=== PATIENT | female | born 1980 | race African-American/Black ===

== ENCOUNTER 2016-09-10 10:38 | Emergency (ER) | payer MEDICAID ==
[2016-09-10] MEDS ORDERED: ONDANSETRON 4 MG TAB.RAPDIS PO ONE (11:22)
[2016-09-10] MEDS ORDERED: ONDANSETRON HCL INJ/PF 4 MG/2 ML SDV IV ONE ×3 (11:23→18:55)
[2016-09-10] MEDS ORDERED: NORMAL SALINE 1000 ML 1,000 ML IV ONE (11:23)
[2016-09-10] MEDS ORDERED: MORPHINE SULFATE 10 MG/ML INJ IV ONE ×2 (11:24→14:17)
--- NOTE | 2016-09-10 11:26 | ER Document Report ---
ED Medical Screen (RME) - General Chief Complaint: Nausea/Vomiting/Diarrhea Stated Complaint: ABDOMINAL PAIN,NAUSEA,VOMITING,DIARRHEA Time Seen by Provider: 09/10/16 11:22 Notes: Patient is here complaining of severe stomach cramps and think she is having a flare of her Crohn's disease. Patient says that she has had diarrhea for the past 3 weeks. She has been nauseated and had vomiting for the past 4 days. She has abdominal pain, primarily to the right of the midline but it goes all over the abdomen. Has not seen any blood in her vomitus or stools. Has not had any fever. Patient sees a see supervisor in [place]. TRAVEL OUTSIDE OF THE [place]S. IN LAST 30 DAYS: No - Related Data Allergies/Adverse Reactions: latex [Latex] Allergy (Verified 09/10/16 10:44) Past Medical History Renal/ Medical History: Denies: Hx Peritoneal Dialysis GI Medical History: Reports: Hx Crohn's Disease, Hx Gastroesophageal Reflux Disease Psychiatric Medical History: Denies: Hx Depression Past Surgical History: Reports: Hx Oral Surgery - [place] teeth, Other - EGD and colonoscopy - Immunizations Hx Diphtheria, Pertussis, Tetanus Vaccination: Yes - 2010 Physical Exam - Vital signs Vitals: Temp Pulse Resp BP Pulse Ox 98.2 F 100 22 H 157/101 H 100 09/10/16 10:44 09/10/16 10:44 09/10/16 10:44 09/10/16 10:44 09/10/16 10:44 Course - Vital Signs Vital signs: Temp Pulse Resp BP Pulse Ox 98.2 F 100 22 H 157/101 H 100 09/10/16 10:44 09/10/16 10:44 09/10/16 10:44 09/10/16 10:44 09/10/16 10:44
[2016-09-10 12:15] LABS: ABSOLUTE BASOPHILS # (AUTO) 0.1 10^3/uL (0.0-0.2); ABSOLUTE EOSINOPHILS # (AUTO) 0.1 10^3/uL (0.0-0.6); ABSOLUTE LYMPHOCYTES (AUTO) 2.1 10^3/uL (0.5-4.7); ABSOLUTE MONOCYTES (AUTO) 0.4 10^3/uL (0.1-1.4); ABSOLUTE NEUT (AUTO) 4.8 10^3/uL (1.7-8.2); BASOPHILS % (AUTO) 0.7 % (0-2); HEMATOCRIT 42.7 % (36.0-47.0); HEMOGLOBIN 13.7 g/dL (12.0-15.5); HGB HCT DIFFERENCE -1.6; LYMPHOCYTES % (AUTO) 28.1 % (13-45); MEAN CORPUSCULAR HEMOGLOBIN 26.6 pg (27.0-33.4); MEAN CORPUSCULAR HGB CONC 32.1 g/dL (32.0-36.0); MEAN CORPUSCULAR VOLUME 83 fl (80-97); MONOCYTES % (AUTO) 5.4 % (3-13); RED BLOOD COUNT 5.16 10^6/uL (3.72-5.28); RED CELL DISTRIBUTION WIDTH 13.7 % (11.5-14.0); SEGMENTED NEUTROPHILS % (AUTO) 64.8 % (42-78); WHITE BLOOD COUNT 7.4 10^3/uL (4.0-10.5)
[2016-09-10 12:57] LABS: ALANINE AMINOTRANSFERASE 17 U/L (9-52); ALBUMIN 4.4 g/dL (3.5-5.0); ALKALINE PHOSPHATASE 105 U/L (38-126); ANION GAP 15 (5-19); ASPARTATE AMINO TRANSFERASE 26 U/L (14-36); BILIRUBIN,DIRECT 0.4 mg/dL (0.0-0.4); BILIRUBIN,TOTAL 0.6 mg/dL (0.2-1.3); BLOOD UREA NITROGEN 9 mg/dL (7-20); CALCIUM 9.9 mg/dL (8.4-10.2); CARBON DIOXIDE 21 mmol/L (22-30); CHLORIDE 104 mmol/L (98-107); CREATININE RESULT 0.83 mg/dL (0.52-1.25); GLUCOSE 77 mg/dL (75-110); POTASSIUM 4.3 mmol/L (3.6-5.0); SODIUM 140.2 mmol/L (137-145); TOTAL PROTEIN 8.1 g/dL (6.3-8.2)
[2016-09-10 13:53] LABS: APPEARANCE,URINE CLEAR; BILIRUBIN,URINE NEGATIVE (NEGATIVE); GLUCOSE, URINE NEGATIVE (NEGATIVE); KETONES,URINE 20 mg/dL (NEGATIVE); LEUKOCYTE ESTERASE,URINE NEGATIVE (NEGATIVE); NITRITE,URINE NEGATIVE (NEGATIVE); PROTEIN,URINE NEGATIVE (NEGATIVE); URINE SPECIFIC GRAVITY 1.014; UROBILINOGEN,URINE NEGATIVE mg/dL (<2.0)
--- NOTE | 2016-09-10 13:56 | ER Document Report ---
ED General <NIK LEYVA - Last Filed: 09/11/16 00:42> - General Mode of Arrival: Ambulatory Information source: Patient TRAVEL OUTSIDE OF THE [place] IN LAST 30 DAYS: No - HPI Onset: Other Onset/Duration: Persistent Severity: Severe Pain Level: 5 Associated symptoms: Diarrhea, Nausea, Vomiting Exacerbated by: Denies Relieved by: Denies Similar symptoms previously: Yes Recently seen / treated by doctor: No <RADHA ASH - Last Filed: 09/11/16 12:04> - General Chief Complaint: Nausea/Vomiting/Diarrhea Stated Complaint: ABDOMINAL PAIN,NAUSEA,VOMITING,DIARRHEA Time Seen by Provider: 09/10/16 11:22 Notes: Patient presents to the emergency department with complaints of nausea and vomiting for the past 3 days, diarrhea for the past 3 weeks, extreme stomach cramps for the past 4 days. Patient reports she has a history of Crohn's. c/o Right side pain. She denies fever. She reports she tried to eat jello and two bites of spaghetti yesterday and vomited it right up. (RADHA ASH) - Related Data Allergies/Adverse Reactions: latex [Latex] Allergy (Verified 09/10/16 10:44) Past Medical History - General Information source: Patient Last Menstrual Period: current - Social History Smoking Status: Unknown if Ever Smoked Cigarette use (# per day): Yes Frequency of alcohol use: None Drug Abuse: None Lives with: Family Family History: DM, Hypertension, Malignancy - Breast cancer in a great aunt. Ovarian cancer in a cousin. Patient has suicidal ideation: No Patient has homicidal ideation: No Renal/ Medical History: Denies: Hx Peritoneal Dialysis GI Medical History: Reports: Hx Crohn's Disease, Hx Gastroesophageal Reflux Disease Psychiatric Medical History: Denies: Hx Depression Past Surgical History: Reports: Hx Oral Surgery - [place] teeth, Other - EGD and colonoscopy - Immunizations Hx Diphtheria, Pertussis, Tetanus Vaccination: Yes - 2010 <RADHA ASH - Last Filed: 09/11/16 12:04> Review of Systems <NIK LEYVA - Last Filed: 09/11/16 00:42> <RADHA ASH - Last Filed: 09/11/16 12:04> - Review of Systems Notes: Review HPI for review of systems., All other systems negative (RADHA ASH) Physical Exam <NIK LEYVA - Last Filed: 09/11/16 00:42> <RADHA ASH - Last Filed: 09/11/16 12:04> - Vital signs Vitals: Temp Pulse Resp BP Pulse Ox 98.2 F 100 22 H 157/101 H 100 09/10/16 10:44 09/10/16 10:44 09/10/16 10:44 09/10/16 10:44 09/10/16 10:44 - Notes Notes: PHYSICAL EXAMINATION: GENERAL: looks like she is hurting HEAD: Atraumatic, normocephalic. EYES: Pupils equal round extraocular movements intact, sclera anicteric, conjunctiva are normal. ENT: nares patent, Moist mucous membranes. NECK: Normal range of motion, supple without lymphadenopathy LUNGS: CTAB and equal. No wheezes rales or rhonchi. HEART: Regular rate and rhythm without murmurs ABDOMEN: Soft, Right side pain, tenderness to palpation. No guarding, no rebound BACK: Denies pain EXTREMITIES: Normal range of motion, no pitting edema. No cyanosis. NEUROLOGICAL: Cranial nerves grossly intact. Normal sensory/motor exams. PSYCH: Normal mood, normal affect. SKIN: Warm, Dry, normal turgor, no rashes or lesions noted (RADHA ASH) Course - Laboratory Result Diagrams: 09/10/16 12:00 09/10/16 12:00 <NIK LEYVA - Last Filed: 09/11/16 00:42> - Laboratory Result Diagrams: 09/10/16 12:00 09/10/16 12:00 - Diagnostic Test Radiology reviewed: Image reviewed, Reports reviewed - significant obstruction per dr topete radiologist - Consults suhr Time consulted: 19:20 Consulted provider: will come to ER <RADHA ASH - Last Filed: 09/11/16 12:04> - Re-evaluation Re-evalutation: 09/10/16 23:40 Patient has not vomited since I was introduced to her, however on reevaluation she is now asking for more pain medicine, she does appear to be somewhat uncomfortable but is not in severe distress. Patient has a room assignment now , setting up transport. 09/11/16 00:42 Transport team has arrived, patient reevaluated again at bedside, she states she is much more comfortable, she is calm and relaxed, she states she is ready to leave. Still mildly hypertensive, vital signs unremarkable otherwise. Stable for transport. (NIK LEYVA) 09/10/16 13:52 labs Unremarkable hx of crohns with obstruction, consulted Dr. Kline per [facility] guidelines agrees with CT oral/iv, pt updated on plan of care 09/10/16 16:52 Drinking oral contrast. Received Dilaudid and Zofran for nausea and pain, reports she feels much better. 09/10/16 18:07 CT results obtained, possible small bowel obstruction consult with Dr. Kline who advised to contact radiologist for clarification. 09/10/16 19:03 [address] results clarified with Dr. Topete radiologist. Appears to be a significant obstruction. Patient is complaining of pain again and vomiting. 09/10/16 19:04 Review of past medical records notes patient was transferred to [facility] for same type of obstruction and March. Discussed this with dr kline, he agrees with transfer. Patient reports no surgeries done at the last time she was transferred. reports she was treated with Solu- Medrol. He had a [facility] transfer. [facility] transferline contacted for GI consult with Dr. Salcedo. NGT ordered 09/10/16 19:17 MERRY alvarado from [facility] GI returned call, agrees patient needs to be transferred. advised surgical consult. transfer arranging for consult. requests solumedrol 09/10/16 19:29 Discussed surgical consult pending from [facility] with dr kline. I decided to contact dr hogan for possible admit here to [facility]. Dr Hogan contacted and he will be done to see the patient 09/10/16 19:55 Dr Hogan here to assess patient, reports he needs to talk with a doctor at [facility]. 09/10/16 20:16 Dr. Hogan reports [facility] to accept the patient.- Dr Reji Chew 09/10/16 20:26 Report given to Nik Leyva PA, pt aware of transfer (RADHA ASH) - Vital Signs Vital signs: Temp Pulse Resp BP Pulse Ox 97.7 F 97 17 163/110 H 100 09/10/16 23:20 09/10/16 23:20 09/10/16 23:20 09/11/16 00:07 09/11/16 00:44 - Laboratory Laboratory results interpreted by me: 09/10/16 09/10/16 09/10/16 12:00 12:00 13:12 MCH 26.6 L Carbon Dioxide 21 L Urine Ketones 20 H Urine Blood SMALL H - Consults suhr Reason for consultation: 09/10/16 19:33 obstruction, hx of crohns (RADHA ASH) Discharge <NIK LEYVA - Last Filed: 09/11/16 00:42> <RADHA ASH - Last Filed: 09/11/16 12:04> - Discharge Clinical Impression: Abdominal pain, Small bowel obstruction Condition: Stable Disposition: [facility] Additional Instructions: Forms: Elevated Blood Pressure
[2016-09-10] MEDS ORDERED: HYDROMORPHONE HCL INJ/PF 2 MG/ML AMPULE IV ONE ×3 (15:47→23:46)
[2016-09-10] MEDS ORDERED: METHYLPREDNISOLONE INJ 125 MG/2 ML SDV IV ONE (19:15)
[2016-09-10] MEDS ORDERED: NORMAL SALINE 1000 ML 1,000 ML IV PRN (20:25)
[2016-09-10] MEDS ORDERED: METOCLOPRAMIDE HCL INJ/PF 10 MG/2 ML SDV IV ONE (20:26)
--- NOTE | 2016-09-10 20:32 | PDOC CONSULTATION ---
Consultation Consult Date: 09/10/16 Consult reason:: bowel obstruction History of Present Illness Patient complains of: nausea and vomiting and abdominal pain History of Present Illness: MACKENZIE MCGEE is a 36 year old female with several year h/o Crohn's disease with several flairs that have responded to steroids and remicade. Typical flair causes obstructive sxs with an inflammed segment in the ileum. She has been having diarrhea for past 3 weeks folllowed by diffuse abdominal pain for the past 4 days along with bilious emesis. Subjective fever. Last episode back in april as per the pt. No prior abdominal surgeries. Past Medical History GI Medical History: Reports: Crohn's Disease, Gastroesophageal Reflux Disease Psychiatric Medical History: Denies: Depression Hematology: Reports: Anemia Past Surgical History Past Surgical History: Reports: Other - EGD and colonoscopy Social History Lives with: Family Smoking Status: Unknown if Ever Smoked Frequency of Alcohol Use: None Hx Recreational Drug Use: No Drugs: None Hx Prescription Drug Abuse: No Family History Family History: DM, Hypertension, Malignancy - Breast cancer in a great aunt. Ovarian cancer in a cousin. Parental Family History Reviewed: No Children Family History Reviewed: No Sibling(s) Family History Reviewed.: No Medication/Allergy Home Medications: Oxycodone HCl/Acetaminophen [Percocet 5-325 mg Tablet] 1 tab PO ASDIR PRN #25 tablet 03/25/16 Sucralfate [Carafate 1 gm Tablet] 1 gm PO BID #60 tablet 03/25/16 Ergocalciferol (Vitamin D2) [Vitamin D2] 1 tab PO ASDIR 04/24/16 Prednisone 20 mg PO DAILY 04/24/16 Allergies/Adverse Reactions: latex [Latex] Allergy (Verified 09/10/16 10:44) Physical Exam Vital Signs: Temp Pulse Resp BP Pulse Ox 97.7 F 97 17 146/103 H 97 09/10/16 19:47 09/10/16 19:47 09/10/16 19:47 09/10/16 19:47 09/10/16 19:47 Intake & Output 09/09/16 09/10/16 09/11/16 06:59 06:59 06:59 Weight 68.9 kg General appearance: PRESENT: cooperative, disheveled Eye exam: PRESENT: conjunctiva pink Respiratory exam: PRESENT: clear to auscultation gwendolyn Cardiovascular exam: PRESENT: RRR GI/Abdominal exam: PRESENT: other - soft, distended but not tight with diffuse tenderness but no peritoneal signs. Extremities exam: PRESENT: other - no swelling Neurological exam: PRESENT: alert, awake Psychiatric exam: PRESENT: appropriate affect Results Laboratory Results: 09/10/16 12:00 09/10/16 12:00 09/10/16 09/10/16 09/10/16 12:00 12:00 13:12 WBC 7.4 RBC 5.16 Hgb 13.7 Hct 42.7 MCV 83 MCH 26.6 L MCHC 32.1 RDW 13.7 Plt Count 382 Seg Neutrophils % 64.8 Lymphocytes % 28.1 Monocytes % 5.4 Eosinophils % 1.0 Basophils % 0.7 Absolute Neutrophils 4.8 Absolute Lymphocytes 2.1 Absolute Monocytes 0.4 Absolute Eosinophils 0.1 Absolute Basophils 0.1 Sodium 140.2 Potassium 4.3 Chloride 104 Carbon Dioxide 21 L Anion Gap 15 BUN 9 Creatinine 0.83 Est GFR ( Amer) > 60 Est GFR (Non-Af Amer) > 60 Glucose 77 Calcium 9.9 Total Bilirubin 0.6 AST 26 ALT 17 Alkaline Phosphatase 105 Total Protein 8.1 Albumin 4.4 Urine Color YELLOW Urine Appearance CLEAR Urine pH 6.0 Ur Specific [place] 1.014 Urine Protein NEGATIVE Urine Glucose (UA) NEGATIVE Urine Ketones 20 H Urine Blood SMALL H Urine Nitrite NEGATIVE Ur Leukocyte Esterase NEGATIVE Urine WBC (Auto) 1 Urine RBC (Auto) 9 Impressions: Abdomen/Pelvis CT 09/10/16 14:18 IMPRESSION: Dilated small bowel, with portions of the distal ileum measuring up to 8 cm in diameter with multiple proximal small bowel air-fluid levels, there does not appear to be significant wall thickening in the dilated loops suggesting chronic condition. There is a transition point in the right lower quadrant distal to the 8 cm dilated segment which is narrowed due to focal wall thickening and adjacent inflammatory changes, wall measuring approximately 11 mm in thickness. The distal small bowel is decompressed beyond this point, which is felt to be somewhere in the mid ileum. Mild free fluid is present in the mesentery adjacent to this inflamed loop and pelvis. Portions of a normal diameter appendix are present adjacent to this inflamed ileal loop. No free air is identified. Chest X-Ray 09/10/16 19:16 IMPRESSION: NG tube tip overlies the body of the stomach, side-port is near the GE junction and could be advanced approximately 5 cm for more ideal placement. Assessment & Plan - Diagnosis (1) Crohns disease Qualifiers: Gastrointestinal tract location: small intestine Digestive disease complication type: with intestinal obstruction Qualified Code(s): K50.012 - Crohn's disease of small intestine with intestinal obstruction Is this a current diagnosis for this admission?: YesPlan: likely crohn's flair at segment of ileum with resultant obstruction. has responded to non surgical measures in the past. No GI coverage here for 5 days. She would benefit from an initial non surgical management. Even if she does repond medically, she may benefit from a semielective resection of the involved ileal segment. I have discussed her case with surgeon injection molding process technician at [facility], where she is being cared for by GI and where she received care for her last flair. The surgeon agrees that it would be an appropriate transfer to [facility]. Pt agree to transfer.
[2016-09-11 00:45] VITALS: BP 163/110
== END 2016-09-11 00:54 | disposition short-term general hospital (02) ==
LOC: ER 10:38
DX: K50.012 Crohn's disease of small intestine with intestinal obstruction (principal); R10.84 Generalized abdominal pain; R19.7 Diarrhea, unspecified; R11.14 Bilious vomiting; Z91.040 Latex allergy status; Z72.0 Tobacco use
CPT/HCPCS: 96376; 99285; 96361; 96374; 96375; 36415; 85025; 81025; 80053; 81001; 71010; 74000; 74177; S0119; J2930; J2765; J2270; J1170 ×2; J2405; J7030

== ENCOUNTER 2016-11-01 19:09 | Inpatient (IN) | payer MEDICAID ==
[2016-11-01] MEDS ORDERED: MORPHINE SULFATE 10 MG/ML INJ IV ONE (19:37)
[2016-11-01] MEDS ORDERED: NORMAL SALINE 1000 ML 1,000 ML IV ONE ×2 (19:37→23:06)
--- NOTE | 2016-11-01 19:37 | ER Document Report ---
ED Medical Screen (RME) - General Chief Complaint: Abdominal Pain Stated Complaint: ABDOMINAL PAIN Time Seen by Provider: 11/01/16 19:32 Mode of Arrival: Ambulatory Information source: Patient Notes: 36-year-old female history of Crohn's disease with 4 previous bowel obstructions presents with complaint of abdominal pain since Wednesday. Patient admits to having a bowel movement today but states it is only a small amount I have greeted and performed a rapid initial assessment of this patient. A comprehensive ED assessment and evaluation of the patient, analysis of test results and completion of the medical decision making process will be conducted by additional ED providers. PHYSICAL EXAMINATION: GENERAL: Well-appearing, well-nourished and in mild distress HEAD: Atraumatic, normocephalic. EYES: Pupils equal round extraocular movements intact, conjunctiva are normal. ENT: Nares patent NECK: Normal range of motion LUNGS: No respiratory distress Musculoskeletal: Normal range of motion NEUROLOGICAL: Normal speech, normal gait. PSYCH: Normal mood, normal affect. SKIN: Warm, Dry, normal turgor, no rashes or lesions noted. TRAVEL OUTSIDE OF THE [place] IN LAST 30 DAYS: No - Related Data Allergies/Adverse Reactions: latex [Latex] Allergy (Verified 09/10/16 10:44) Past Medical History Renal/ Medical History: Denies: Hx Peritoneal Dialysis GI Medical History: Reports: Hx Crohn's Disease, Hx Gastroesophageal Reflux Disease Psychiatric Medical History: Denies: Hx Depression Past Surgical History: Reports: Hx Oral Surgery - [place] teeth, Other - EGD and colonoscopy - Immunizations Hx Diphtheria, Pertussis, Tetanus Vaccination: Yes - 2010 Physical Exam - Vital signs Vitals: Temp Pulse Resp BP Pulse Ox 98.1 F 106 H 18 130/106 H 100 11/01/16 19:15 11/01/16 19:15 11/01/16 19:15 11/01/16 19:15 11/01/16 19:15 Course - Vital Signs Vital signs: Temp Pulse Resp BP Pulse Ox 98.1 F 106 H 18 130/106 H 100 11/01/16 19:15 11/01/16 19:15 11/01/16 19:15 11/01/16 19:15 11/01/16 19:15
[2016-11-01 20:49] LABS: APPEARANCE,URINE CLEAR; BILIRUBIN,URINE NEGATIVE (NEGATIVE); GLUCOSE, URINE NEGATIVE (NEGATIVE); KETONES,URINE NEGATIVE (NEGATIVE); LEUKOCYTE ESTERASE,URINE NEGATIVE (NEGATIVE); NITRITE,URINE NEGATIVE (NEGATIVE); PROTEIN,URINE NEGATIVE (NEGATIVE); URINE SPECIFIC GRAVITY 1.009; UROBILINOGEN,URINE NEGATIVE mg/dL (<2.0)
[2016-11-01 21:54] LABS: ABSOLUTE BASOPHILS # (AUTO) 0.1 10^3/uL (0.0-0.2); ABSOLUTE EOSINOPHILS # (AUTO) 0.2 10^3/uL (0.0-0.6); ABSOLUTE LYMPHOCYTES (AUTO) 2.1 10^3/uL (0.5-4.7); ABSOLUTE MONOCYTES (AUTO) 0.5 10^3/uL (0.1-1.4); ABSOLUTE NEUT (AUTO) 4.2 10^3/uL (1.7-8.2); BASOPHILS % (AUTO) 1.1 % (0-2); EOSINOPHILS % (AUTO) 2.3 % (0-6); HEMATOCRIT 42.9 % (36.0-47.0); HEMOGLOBIN 13.6 g/dL (12.0-15.5); HGB HCT DIFFERENCE -2.1; LYMPHOCYTES % (AUTO) 29.9 % (13-45); MEAN CORPUSCULAR HEMOGLOBIN 26.3 pg (27.0-33.4); MEAN CORPUSCULAR HGB CONC 31.7 g/dL (32.0-36.0); MEAN CORPUSCULAR VOLUME 83 fl (80-97); MONOCYTES % (AUTO) 7.5 % (3-13); RED BLOOD COUNT 5.16 10^6/uL (3.72-5.28); RED CELL DISTRIBUTION WIDTH 13.9 % (11.5-14.0); SEGMENTED NEUTROPHILS % (AUTO) 59.2 % (42-78); WHITE BLOOD COUNT 7.1 10^3/uL (4.0-10.5)
[2016-11-01 22:14] LABS: ALANINE AMINOTRANSFERASE 21 U/L (9-52); ALKALINE PHOSPHATASE 94 U/L (38-126); ANION GAP 12 (5-19); ASPARTATE AMINO TRANSFERASE 15 U/L (14-36); BILIRUBIN,DIRECT 0.5 mg/dL (0.0-0.4); BILIRUBIN,TOTAL 0.6 mg/dL (0.2-1.3); BLOOD UREA NITROGEN 11 mg/dL (7-20); CALCIUM 9.5 mg/dL (8.4-10.2); CARBON DIOXIDE 24 mmol/L (22-30); CHLORIDE 104 mmol/L (98-107); CREATININE RESULT 0.83 mg/dL (0.52-1.25); GLUCOSE 71 mg/dL (75-110); POTASSIUM 4.2 mmol/L (3.6-5.0); SODIUM 139.9 mmol/L (137-145); TOTAL PROTEIN 7.5 g/dL (6.3-8.2)
--- NOTE | 2016-11-01 22:17 | ER Document Report ---
ED General - General Chief Complaint: Abdominal Pain Stated Complaint: ABDOMINAL PAIN Time Seen by Provider: 11/01/16 19:32 Mode of Arrival: Ambulatory Notes: Patient is a 36-year-old female with past medical history of Crohn's disease with associated recurrent small bowel obstructions however has no prior surgical history who presents with 3 days of progressively worsening diffuse abdominal pain, nausea, and absence of any flatus for the past 2 days. States that when she began to have these symptoms several days ago she immediately transition to strict clears and attempt to prevent progression of her small bowel obstruction. However states this did not work and she has had progressively worsening diffuse, cramping abdominal pain. Nothing improves or worsens her symptoms. She has not been able to tolerate oral intake and states any time she takes it even clear liquid she developed severe nausea. She does however note that she has not had any vomiting. She has not seen a primary doctor regarding today's concerns. Denies any fever, chest pain or shortness of breath. TRAVEL OUTSIDE OF THE [place] IN LAST 30 DAYS: No - Related Data Allergies/Adverse Reactions: latex [Latex] Allergy (Verified 09/10/16 10:44) Past Medical History - General Information source: Patient - Social History Smoking Status: Never Smoker Frequency of alcohol use: None Drug Abuse: None Lives with: Spouse/Significant other Family History: DM, Hypertension, Malignancy - Breast cancer in a great aunt. Ovarian cancer in a cousin. Patient has suicidal ideation: No Patient has homicidal ideation: No Renal/ Medical History: Denies: Hx Peritoneal Dialysis GI Medical History: Reports: Hx Crohn's Disease, Hx Gastroesophageal Reflux Disease Psychiatric Medical History: Denies: Hx Depression Past Surgical History: Reports: Hx Oral Surgery - [place] teeth, Other - EGD and colonoscopy - Immunizations Hx Diphtheria, Pertussis, Tetanus Vaccination: Yes - 2010 Review of Systems - Review of Systems Notes: Constitutional: Negative for fever. HENT: Negative for sore throat. Eyes: Negative for visual changes. Cardiovascular: Negative for chest pain. Respiratory: Negative for shortness of breath. Gastrointestinal: Positive for abdominal pain and nausea Genitourinary: Negative for dysuria. Musculoskeletal: Negative for back pain. Skin: Negative for rash. Neurological: Negative for headaches, weakness or numbness. 10 point ROS negative except as marked above and in HPI. Physical Exam - Vital signs Vitals: Temp Pulse Resp BP Pulse Ox 98.1 F 106 H 18 130/106 H 100 11/01/16 19:15 11/01/16 19:15 11/01/16 19:15 11/01/16 19:15 11/01/16 19:15 Interpretation: Tachycardic Notes: PHYSICAL EXAMINATION: GENERAL: Appears uncomfortable but in no acute distress HEAD: Atraumatic, normocephalic. EYES: Pupils equal round and reactive to light, extraocular movements intact, sclera anicteric, conjunctiva are normal. ENT: nares patent, oropharynx clear without exudates. Moderately dry mucous membranes. NECK: Normal range of motion, supple without lymphadenopathy LUNGS: Breath sounds clear to auscultation bilaterally and equal. No wheezes rales or rhonchi. HEART: Regular rate and rhythm without murmurs ABDOMEN: Soft, hypoactive bowel sounds, diffuse tenderness to palpation without rebound or guarding. EXTREMITIES: Normal range of motion, no pitting or edema. No cyanosis. NEUROLOGICAL: No focal neurological deficits. Moves all extremities spontaneously and on command. PSYCH: Normal mood, normal affect. SKIN: Warm, Dry, normal turgor, no rashes or lesions noted. Course - Re-evaluation Re-evalutation: 11/01/16 22:16 Patient presents with 3 days of progressively worsening diffuse abdominal pain, no flatus for the past 2 days, and decreasing bowel movement frequency despite being only on clear liquids for the past 3 days. She has not had any vomiting but notes a sensation of severe nausea and belching. Concern at this time is for a recurrent small bowel obstruction in the setting of Crohn's disease. Will obtain labs, CT abdomen pelvis and reassess. 11/01/16 23:18 CT the abdomen pelvis does demonstrate findings consistent with a small bowel obstruction originating from the ileum which is the location the patient has had SBO is originating from in the past. Will place an NG tube under Versed sedation. I discussed this case with the surgeon cardiopulmonary technician Dr. Lorenz who has agreed to evaluate the patient for admission. - Vital Signs Vital signs: Temp Pulse Resp BP Pulse Ox 98.1 F 106 H 18 130/106 H 100 11/01/16 19:15 11/01/16 19:15 11/01/16 19:15 11/01/16 19:15 11/01/16 19:15 - Laboratory Result Diagrams: 11/01/16 21:45 11/01/16 21:45 Laboratory results interpreted by me: 11/01/16 11/01/16 21:45 21:45 MCH 26.3 L MCHC 31.7 L Glucose 71 L Direct Bilirubin 0.5 H - Diagnostic Test Radiology reviewed: Reports reviewed Discharge - Discharge Clinical Impression: Small bowel obstruction Crohns disease Qualifiers: Gastrointestinal tract location: small intestine Digestive disease complication type: with intestinal obstruction Qualified Code(s): K50.012 - Crohn's disease of small intestine with intestinal obstruction Condition: Fair Disposition: ADMITTED INPATIENT Admitting Provider: Isaiasist Sita [place] Unit Admitted: Surgical Floor
--- NOTE | 2016-11-01 23:01 | RADIOLOGY REPORT (SQ) ---
EXAM DESCRIPTION: CT ABD/PELVIS WITH IV ORAL COMPLETED DATE/TIME: 11/01/2016 10:12 pm REASON FOR STUDY: abd laura burrell hx of obstructions COMPARISON: 09/10/2016 TECHNIQUE: CT scan of the abdomen and pelvis performed using helical scanning technique with dynamic intravenous contrast injection. No oral contrast. Images reviewed with lung, soft tissue, and bone windows. Reconstructed coronal and sagittal MPR images reviewed. Delayed images for evaluation of the urinary system also acquired. All images stored on PACS. All CT scanners at this facility use dose modulation, iterative reconstruction, and/or weight based d osing when appropriate to reduce radiation dose to as low as reasonably achievable (ALARA). [facility]: Dose Right [facility]: CareDose [facility]: Dose Right [facility]: Teradose 4D [facility]: [facility] CONTRAST TYPE AND DOSE: contrast/concentration: Isovue 370.00 mg/ml; Total Contrast Delivered: 70.0 ml; Total Saline Delivered: 18.9 ml RENAL FUNCTION: None required. The patient is less than 50 years old. RADIATION DOSE: Up-to-date CT equipment and radiation dose reduction techniques were employed. CTDIv ol: 6.9 - 9.7 mGy. DLP: 842 mGy-cm.. LIMITATIONS: None. FINDINGS: LOWER CHEST: No significant findings. No nodules or infiltrates. LIVER: Normal size. No masses. No dilated ducts. SPLEEN: Normal size. No focal lesions. PANCREAS: No masses. No significant calcifications. No adjacent inflammation or peripancreatic fluid collections. Pancreatic duct not dilated. GALLBLADDER: No identified stones by CT criteria. No inflammatory changes to suggest cholecystitis. ADRENAL GLANDS: No significant masses or asymmetry. RIGHT KIDNEY AND URETER: No solid masses. No significant calcifications. No hydronephrosis or hyd roureter. LEFT KIDNEY AND URETER: No solid masses. No significant calcifications. No hydronephrosis or hydr oureter. AORTA AND VESSELS: No aneurysm. No dissection. Renal arteries, SMA, celiac without stenosis. RETROPERITONEUM: No retroperitoneal adenopathy, hemorrhage or masses. BOWEL AND PERITONEAL CAVITY: Overall Similar appearing dilated distal ileum with multiple loops measu ring approximately 5 cm diameter. Contrast material is present at the level of the distal jejunum-pro ximal ileum. APPENDIX: Not visualized. PELVIS: Small amount of free fluid. Similar appearance of a small right ovarian dermoid. Normal marielena dder. ABDOMINAL WALL: No masses. No hernias. BONES: No significant or acute findings. OTHER: No other significant finding. IMPRESSION: Overall Similar appearing dilated distal ileum with multiple loops measuring approximate ly 5 cm diameter. Contrast material is present at the level of the distal jejunum-proximal ileum. Additional imaging could be obtained to assess for contrast passage to the colon if clinically desire d. Small amount of pelvic free fluid. TECHNICAL DOCUMENTATION: JOB ID: [id number] Quality ID # [id number]: Final reports with documentation of one or more dose reduction techniques (e.g., Au tomated exposure control, adjustment of the mA and/or kV according to patient size, use of iterative reconstruction technique) 2010 [employer]- All Rights Reserved
[2016-11-01] MEDS ORDERED: MORPHINE SULFATE 10 MG/ML INJ IV PRN (23:05)
[2016-11-01] MEDS ORDERED: MIDAZOLAM 2 MG/2 ML INJ IV ONE (23:06)
[2016-11-02] MEDS ORDERED: BENZOCAINE 20% AEROSOL SPRAY 60 GM TP PRN (00:08)
[2016-11-02] MEDS ORDERED: GLUCAGON,HUMAN RECOMB 1 MG INJ SUBCUT PRN (00:08)
[2016-11-02] MEDS ORDERED: ONDANSETRON HCL INJ/PF 4 MG/2 ML SDV IV PRN ×2 (00:08→15:20)
[2016-11-02] MEDS ORDERED: DEXTROSE 50%-WATER 25 GM/50 ML DISP.SYRIN IV PRN ×2 (00:08)
[2016-11-02] MEDS ORDERED: DEXTROSE 40% GEL 15 GM TUBE PO PRN ×2 (00:08)
[2016-11-02] MEDS ORDERED: PHARMACY COMMUNICATION ORDER MC NR (00:15)
[2016-11-02] MEDS: MORPHINE SULFATE 10 MG/ML INJ IV PRN ×7 (02:07→23:09)
--- NOTE | 2016-11-02 02:58 | RADIOLOGY REPORT (SQ) ---
EXAM DESCRIPTION: KUB/ABDOMEN (SINGLE VIEW) COMPLETED DATE/TIME: 11/02/2016 1:07 am REASON FOR STUDY: Check Placement of NG Tube COMPARISON: 09/10/2016. The NUMBER OF VIEWS: One view. TECHNIQUE: Supine radiographic image of the abdomen acquired. LIMITATIONS: None. FINDINGS: BOWEL GAS PATTERN: Moderate dilated wall partially imaged. CALCIFICATIONS: No suspicious calcifications. SOFT TISSUES: No gross mass or suggestion of organomegaly. HARDWARE: NG tube tip overlies the left upper abdominal quadrant -stomach. Proximal port of the NG t ube is at the gastroesophageal junction. BONES: No acute fracture. No worrisome bone lesions. OTHER: Residual contrast of the renal collecting system. IMPRESSION: NG tube. Dilated bowel partially imaged. No significant interval change. TECHNICAL DOCUMENTATION: JOB ID: [id number] [employer]- All Rights Reserved
--- NOTE | 2016-11-02 06:18 | HISTORY AND PHYSICAL E ---
History and Physical NAME: MACKENZIE MCGEE : 1980 AGE: 36Y ADMITTED: 11/02/2016 ROOM: [facility] REASON FOR ADMISSION: Abdominal pain, nausea, and vomiting. HISTORY OF PRESENT ILLNESS: The patient is a 36-year-old female who has a history of Crohn's disease. She has been hospitalized several times because of bowel obstruction secondary to the Crohn's disease as she has not had any previous abdominal surgeries. Her last time was in August, which she had medical treatment, and with the bowel obstruction resolving, was discharged home. It lasted 4-5 days. She has been having increasing abdominal pain and not feeling well. She has had decreased bowel movements also during this time. She currently is on Remicade and being treated by cupola tapper in [place]. She had a CT scan of the abdomen and pelvis, which shows dilated small intestine with the location of the obstruction unknown. Her previous CT scans showed the area of narrowing in the mid ileal region. MEDICATIONS: 1. Remicade. 2. Amlodipine. MEDICAL PROBLEMS: 1. Crohn's disease. 2. Multiple bowel obstructions secondary to Crohn's disease. 3. Hypertension. ALLERGIES TO MEDICATION: None. HABITS: The patient smokes 4-5 cigarettes a day. Denies any alcohol or smoking history. SOCIAL HISTORY: The patient is . FAMILY HISTORY: She denies any family history of Crohn's disease. SURGICAL HISTORY: None. REVIEW OF SYSTEMS: GASTROINTESTINAL: Abdominal pain, nausea, and vomiting. Twelve-point review of systems was obtained with pertinent positives discussed and all others being negative. PHYSICAL EXAMINATION: VITAL SIGNS: Temperature is 98.1, pulse 106, blood pressure 130/106, respirations 18. GENERAL: Patient is lying in bed. She is uncomfortable secondary to the issues ongoing intra-abdominally. She is appearing to answer questions fully. EYES: Anicteric. NECK: No lymphadenopathy. HEART: Mild tachycardic. LUNGS: Clear. BACK: Nontender. ABDOMEN: Mildly distended, diffusely tender, moderate with no rebound, rigidity, or peritoneal signs. No hernias. EXTREMITIES: No edema or cyanosis. NEUROLOGICAL: The patient appears to be neurologically intact without any deficits. PSYCHOLOGICAL: The patient is cooperative and appears to answer questions fully. LABORATORY: White blood cell count is 7.1, hemoglobin 13.6. Sodium 140, potassium 4.2, creatinine 0.8. CT scan of the abdomen and pelvis shows multiple loops in the small intestine measuring up to 5 cm in diameter. The contrast enters the proximal ileum, but does not proceed any further and does not go into the colon. ASSESSMENT: 1. Crohn's disease with recurrent bowel obstructions. These have been medically managed in the past. However, in discussion with the patient, at this point, she feels that this is worsening and she would now like to entertain surgery. I have recommended that she see the cupola tapper one more time to see if there is any other medical therapy that may be tried before proceeding on with surgery. She will be admitted to the hospital, placed n.p.o., have NG tube to low wall suction, IV fluids. 2. Hypertension. Will see what her blood pressure does in the hospital once she gets comfortable and whether she will need to be put on any IV antihypertensives. PLAN: 1. The patient will be admitted to the hospital. 2. GI consult. 3. N.P.O. 4. IV fluids. DICTATING PHYSICIAN: JOSE MORA M.D. [id number] PHY#: [id number] ID: [id number] JOB#: [id number] ACCT: [id number] cc: >
[2016-11-02 06:48] LABS: HEMATOCRIT 36.7 % (36.0-47.0); HGB HCT DIFFERENCE -1.9; MEAN CORPUSCULAR HEMOGLOBIN 26.3 pg (27.0-33.4); MEAN CORPUSCULAR HGB CONC 31.5 g/dL (32.0-36.0); MEAN CORPUSCULAR VOLUME 83 fl (80-97); RED CELL DISTRIBUTION WIDTH 13.5 % (11.5-14.0); WHITE BLOOD COUNT 5.4 10^3/uL (4.0-10.5)
[2016-11-02 06:58] LABS: ANION GAP 7 (5-19); BLOOD UREA NITROGEN 8 mg/dL (7-20); CALCIUM 8.4 mg/dL (8.4-10.2); CARBON DIOXIDE 25 mmol/L (22-30); CHLORIDE 108 mmol/L (98-107); CREATININE RESULT 0.78 mg/dL (0.52-1.25); GLUCOSE 72 mg/dL (75-110); HEMOGLOBIN 11.6 g/dL (12.0-15.5); POTASSIUM 3.4 mmol/L (3.6-5.0); SODIUM 140.4 mmol/L (137-145)
[2016-11-02] MEDS: FAMOTIDINE INJ/PF 20 MG/2 ML SDV IV SCH ×2 (10:12→21:04)
[2016-11-02] MEDS: POTASSI CL 20 MEQ/1/2NS 1L 1,000 ML IV PRN ×2 (10:17→19:13)
--- NOTE | 2016-11-02 16:15 | RADIOLOGY REPORT (SQ) ---
EXAM DESCRIPTION: ABDOMEN 2 VIEWS COMPLETED DATE/TIME: 11/02/2016 3:24 pm REASON FOR STUDY: EVAL SBO COMPARISON: 11/02/2016 and 09/10/2016. NUMBER OF VIEWS: Two views. TECHNIQUE: Supine and erect/decubitus radiographic images of the abdomen acquired. LIMITATIONS: None. FINDINGS: FREE AIR: None. No abnormal gas collections. LUNG BASES: Clear. BOWEL GAS PATTERN: Dilated bowel loops primarily on the left side of the abdomen. CALCIFICATIONS: No suspicious calcifications. SOFT TISSUES: No gross mass or suggestion of organomegaly. HARDWARE: Tip of the nasogastric tube in proximal stomach. Distal side hole in the lower esophagus. BONES: No acute fracture. No worrisome bone lesions. OTHER: No other significant finding. IMPRESSION: 1. NASOGASTRIC TUBE DESCRIBED. ADVANCEMENT BY 5 CM OR MORE WOULD IMPROVE POSITIONING. 2. DILATED BOWEL LOOPS, SIMILAR TO THE PRIOR STUDY. TECHNICAL DOCUMENTATION: JOB ID: [id number] [employer]- All Rights Reserved
--- NOTE | 2016-11-02 16:20 | PDOC PROGRESS REPORT ---
Subjective Progress Note for:: 11/02/16 Subjective:: Patient states she has had no flatus; she had some bleeding from her nasogastric tube but that is abated. She cannot tell she feels better. She heavily sedated on morphine. Physical Exam Vital Signs: Temp Pulse Resp BP Pulse Ox 98.3 F 78 16 141/94 H 100 11/02/16 12:20 11/02/16 12:20 11/02/16 12:20 11/02/16 12:20 11/02/16 12:20 Intake & Output 11/01/16 11/02/16 11/03/16 06:59 06:59 06:59 Intake Total 0 600 Output Total 0 Balance 0 600 Weight 67.9 kg General appearance: PRESENT: other - Heavily sedated Francois is a lady go for chest x-ray evacuated I will find out this is GI/Abdominal exam: PRESENT: other - Abdomen is soft no peritoneal signs no rigidity no distention. Results Laboratory Results: 11/02/16 05:37 11/02/16 05:37 11/02/16 11/02/16 05:37 05:37 WBC 5.4 RBC 4.40 Hgb 11.6 L Hct 36.7 MCV 83 MCH 26.3 L MCHC 31.5 L RDW 13.5 Plt Count 296 Sodium 140.4 Potassium 3.4 L Chloride 108 H Carbon Dioxide 25 Anion Gap 7 BUN 8 Creatinine 0.78 Est GFR ( Amer) > 60 Est GFR (Non-Af Amer) > 60 Glucose 72 L Calcium 8.4 Impressions: Abdomen/Pelvis CT 11/01/16 19:37 IMPRESSION: Overall Similar appearing dilated distal ileum with multiple loops measuring approximately 5 cm diameter. Contrast material is present at the level of the distal jejunum-proximal ileum. Additional imaging could be obtained to assess for contrast passage to the colon if clinically desired. Small amount of pelvic free fluid. Abdomen X-Ray 11/02/16 00:00 IMPRESSION: 1. NASOGASTRIC TUBE DESCRIBED. ADVANCEMENT BY 5 CM OR MORE WOULD IMPROVE POSITIONING. 2. DILATED BOWEL LOOPS, SIMILAR TO THE PRIOR STUDY. KUB X-Ray 11/02/16 00:09 IMPRESSION: NG tube. Dilated bowel partially imaged. No significant interval change. Assessment & Plan - Diagnosis (1) Small bowel obstruction Is this a current diagnosis for this admission?: YesPlan: Impression is small bowel obstruction, chronic, recurrent; no evidence of peritoneal signs on physical examination; clinical reassessment unreliable due to patient being medicated on narcotics. Plan: 1. Will check two-view abdominal films this afternoon 2. I have asked the nursing staff to hold on IV narcotics so I can reassess the patient. 3. No immediate indication for surgical intervention now.
[2016-11-03] MEDS: POTASSI CL 20 MEQ/1/2NS 1L 1,000 ML IV PRN ×2 (02:52→08:45)
[2016-11-03 04:55] LABS: HEMATOCRIT 33.5 % (36.0-47.0); HEMOGLOBIN 10.9 g/dL (12.0-15.5); HGB HCT DIFFERENCE -0.8; MEAN CORPUSCULAR HEMOGLOBIN 26.7 pg (27.0-33.4); MEAN CORPUSCULAR HGB CONC 32.5 g/dL (32.0-36.0); MEAN CORPUSCULAR VOLUME 82 fl (80-97); RED BLOOD COUNT 4.09 10^6/uL (3.72-5.28); RED CELL DISTRIBUTION WIDTH 13.7 % (11.5-14.0); WHITE BLOOD COUNT 5.1 10^3/uL (4.0-10.5)
[2016-11-03 05:12] LABS: ANION GAP 10 (5-19); BLOOD UREA NITROGEN 8 mg/dL (7-20); CALCIUM 8.5 mg/dL (8.4-10.2); CARBON DIOXIDE 20 mmol/L (22-30); CHLORIDE 108 mmol/L (98-107); CREATININE RESULT 0.73 mg/dL (0.52-1.25); GLUCOSE 53 mg/dL (75-110); POTASSIUM 3.9 mmol/L (3.6-5.0); SODIUM 137.7 mmol/L (137-145)
[2016-11-03] MEDS: MORPHINE SULFATE 10 MG/ML INJ IV PRN ×3 (08:43→23:01)
[2016-11-03] MEDS: FAMOTIDINE INJ/PF 20 MG/2 ML SDV IV SCH ×2 (13:31→23:01)
--- NOTE | 2016-11-03 16:18 | RADIOLOGY REPORT (SQ) ---
EXAM DESCRIPTION: UPPER GI/SM BOWEL COMPLETED DATE/TIME: 11/03/2016 2:16 pm REASON FOR STUDY: confirm SBO ABDOMINAL PAIN SMALL BOWEL OBSTRUCTION COMPARISON: Abdominal radiographs 11/02/2016, CT abdomen and pelvis 11/01/2016, CT abdomen pelvis 2016 TECHNIQUE: Under fluoroscopic guidance, Gastrografin was instilled through the patient's existing NG catheter. Fluoroscopic spot images and routine radiographic images acquired and stored on PACS. Following evaluation of the stomach, serial delayed abdominal radiographs until colonic identificatio n. Fluoroscopic images recorded of the terminal ileum. 12 MM BARIUM TABLET GIVEN: No. FLUOROSCOPY TIME: 2.8 minutes 14 fluoroscopy images saved to PACS. LIMITATIONS: The patient experienced emesis during the procedure mildly limiting the opacification o f bowel. Limited single contrast Gastrografin utilized due to history of obstruction. FINDINGS: [employer] ASSISTANT FILM: A small amount of contrast is seen within the proximal colon to the level of the splenic flexure. Dilated loops of bowel are again identified overlying midline and left abdomen. NG tube is unchanged. STOMACH: Normal without masses. GASTRIC OUTLET: No delay in emptying. Normal pylorus. DUODENAL BULB: Normal distention. No spasm or ulceration. DUODENUM: Mucosa normal. No extrinsic masses or malrotation. PROXIMAL SMALL BOWEL: Normal as visualized. JEJUNUM: Normal as visualized. ILEUM: There is marked dilatation of the distal ileum. TERMINAL ILEUM AND ILEO-CECAL VALVE: Not well visualized due to lack of opacification. PROXIMAL COLON: Incompletely imaged. No abnormality. TRANSIT TIME: Contrast is eventually seen opacifying the dilated loops of distal ileum at 0400 hours . NON-GI TRACT STRUCTURES: No significant finding. OTHER: No other significant finding. IMPRESSION: SMALL BOWEL OBSTRUCTION WITH MARKED DILATATION OF THE DISTAL ILEUM AND SMALL AMOUNT OF C ONTRAST ADVANCING BEYOND THIS POINT AT 4 HOURS. A FOLLOW-UP RADIOGRAPH LATE EVENING OR IN THE [facility] MAY BE HELPFUL FOR EVALUATION OF ADVANCEMENT OF CONTRAST. COMMENT: Quality ID [id number]: Final reports for procedures using fluoroscopy that document radiation exp osure indices, or exposure time and number of fluorographic images (if radiation exposure indices are not available) TECHNICAL DOCUMENTATION: JOB ID: [id number] [employer]- All Rights Reserved
[2016-11-04] MEDS: POTASSI CL 20 MEQ/1/2NS 1L 1,000 ML IV PRN ×2 (04:45→10:31)
[2016-11-04] MEDS: MORPHINE SULFATE 10 MG/ML INJ IV PRN (04:47)
[2016-11-04] MEDS: FAMOTIDINE INJ/PF 20 MG/2 ML SDV IV SCH (10:31)
[2016-11-04 12:28] VITALS: BP 148/97
--- NOTE | 2016-11-04 16:12 | RADIOLOGY REPORT (SQ) ---
EXAM DESCRIPTION: ABDOMEN 2 VIEWS COMPLETED DATE/TIME: 11/04/2016 2:25 pm REASON FOR STUDY: SBO COMPARISON: 11/02/2016 NUMBER OF VIEWS: Two views. TECHNIQUE: Supine and erect radiographic images of the abdomen acquired. LIMITATIONS: None. FINDINGS: FREE AIR: None. No abnormal gas collections. LUNG BASES: Clear. BOWEL GAS PATTERN: Dilated loop of sigmoid colon is present. Contrast is present in the right colon and in the descending colon. CALCIFICATIONS: No suspicious calcifications. SOFT TISSUES: No gross mass or suggestion of organomegaly. HARDWARE: An NG tube is just inside the stomach. BONES: No acute fracture. No worrisome bone lesions. OTHER: No other significant finding. IMPRESSION: There may be some degree of sigmoid volvulus. There does not appear to be a high-grade obstruction, however. TECHNICAL DOCUMENTATION: JOB ID: [id number] [employer]- All Rights Reserved
--- NOTE | 2016-12-24 15:37 | DISCHARGE SUMMARY E ---
Discharge Summary NAME: MACKENZIE MCGEE : 1980 AGE: 36Y ADMITTED: 11/02/2016 DISCHARGED: 11/04/2016 DISCHARGE DIAGNOSIS: Small bowel obstruction with spontaneous improvement with nasogastric tube decompression and IV fluids and n.p.o. status. HOSPITAL COURSE: This 36-year-old female with a past medical history of Crohn disease with associated recurrent small bowel obstructions with no prior surgical history presents with a 3-day history of progressively worsening diffuse abdominal pain, nausea, and absence of flatus for the past 2 days. Patient had begun having symptoms several days prior to admission where she immediately transitioned to clear liquids with an attempt to improve progression of her small bowel obstruction. However, this did not work and she came in complaining of progressively worsening diffuse cramping abdominal pain. She was not able to tolerate any oral intake and states that even with taking clear liquids she developed severe nausea without vomiting. Patient was admitted to the hospital and nasogastric tube was inserted and the patient was given pain medication, was kept n.p.o. and repeat x-rays were done. Patient continued to improve, was seen by Dr. Navneet Parrish on 11/02/2016, which at that time she was still heavily sedated on morphine and could not tell him whether she felt better or not. The x-ray done on 11/04/2016 revealed there was no evidence of obstruction and there was some degree of sigmoid volvulus but it was not causing obstruction. The patient's NG tube was removed and she was started on diet, which she tolerated well. The patient, however, was unhappy with the care and the patient signed out against medical advice on 11/04/2016. DICTATING PHYSICIAN: ABDULAZIZ ARGUELLO M.D. [id number] PHY#: [id number] ID: [id number] JOB#: [id number] ACCT: [id number] cc:Rayshawn MANCERA M.D. >
== END 2016-11-04 16:00 | disposition left against medical advice (07) | DRG 386 ==
LOC: ER 19:09 → UNDOADMIN 23:32 → EH 23:32 → 4N 11-02 01:43
PROVIDERS: ADMIT Surgery; ATTEND Surgery
PROC: 0D9670Z Drainage of Stomach with Drainage Device, Via Natural or Artificial Opening (ICD-10-PCS; principal; 2016-11-02)
DX: K50.012 Crohn's disease of small intestine with intestinal obstruction (principal); I10 Essential (primary) hypertension; F17.210 Nicotine dependence, cigarettes, uncomplicated; K21.9 Gastro-esophageal reflux disease without esophagitis; Z91.040 Latex allergy status; Z83.3 Family history of diabetes mellitus; Z80.3 Family history of malignant neoplasm of breast; Z80.41 Family history of malignant neoplasm of ovary; Z82.49 Family history of ischemic heart disease and other diseases of the circulatory system
CPT/HCPCS: 36415; 74000; 74020; 74177; 74249; 80048; 80053; 81001; 81025; 85025; 85027; 96361; 96374; 96376; 99285; A6266; J2250; J2270; J2405; J3480; J3490; J7030; S0028

== ENCOUNTER 2016-11-10 01:19 | Emergency (ER) | payer MEDICAID ==
[2016-11-10 02:49] LABS: APPEARANCE,URINE CLEAR; BILIRUBIN,URINE NEGATIVE (NEGATIVE); GLUCOSE, URINE NEGATIVE (NEGATIVE); KETONES,URINE NEGATIVE (NEGATIVE); LEUKOCYTE ESTERASE,URINE NEGATIVE (NEGATIVE); NITRITE,URINE NEGATIVE (NEGATIVE); PROTEIN,URINE NEGATIVE (NEGATIVE); URINE SPECIFIC GRAVITY 1.023
--- NOTE | 2016-11-10 03:49 | RADIOLOGY REPORT (SQ) ---
EXAM DESCRIPTION: ACUTE ABDOMEN SERIES COMPLETED DATE/TIME: 11/10/2016 3:37 am REASON FOR STUDY: abdominal pain COMPARISON: 11/04/2016, 11/03/2016, 11/01/2016, and 09/10/2016. NUMBER OF VIEWS: Three views. TECHNIQUE: Frontal chest, supine abdomen and upright/decubitus abdomen radiographic images acquired. LIMITATIONS: None. FINDINGS: CHEST: Lungs clear of infiltrates. FREE AIR: None. No abnormal gas collections. BOWEL GAS PATTERN: Dilated bowel centrally. CALCIFICATIONS: No suspicious calcifications. HARDWARE: None in the abdomen. SOFT TISSUES: No gross mass or suggestion of organomegaly. BONES: No acute fracture. No worrisome bone lesions. OTHER: No other significant finding. IMPRESSION: DILATED BOWEL CENTRALLY, SIMILAR TO MULTIPLE PRIOR STUDIES. TECHNICAL DOCUMENTATION: JOB ID: [id number] [employer]- All Rights Reserved
[2016-11-10 04:48] LABS: ALANINE AMINOTRANSFERASE 10 U/L (9-52); ALBUMIN 3.8 g/dL (3.5-5.0); ALKALINE PHOSPHATASE 85 U/L (38-126); ANION GAP 14 (5-19); ASPARTATE AMINO TRANSFERASE 29 U/L (14-36); BILIRUBIN,DIRECT 0.5 mg/dL (0.0-0.4); BILIRUBIN,TOTAL 0.5 mg/dL (0.2-1.3); BLOOD UREA NITROGEN 13 mg/dL (7-20); CALCIUM 9.2 mg/dL (8.4-10.2); CARBON DIOXIDE 23 mmol/L (22-30); CHLORIDE 104 mmol/L (98-107); CREATININE RESULT 0.81 mg/dL (0.52-1.25); GLUCOSE 72 mg/dL (75-110); LIPASE 80.2 U/L (23-300); POTASSIUM 3.6 mmol/L (3.6-5.0); SODIUM 140.6 mmol/L (137-145); TOTAL PROTEIN 7.7 g/dL (6.3-8.2)
[2016-11-10 04:51] LABS: ABSOLUTE EOSINOPHILS # (AUTO) 0.1 10^3/uL (0.0-0.6); ABSOLUTE LYMPHOCYTES (AUTO) 2.2 10^3/uL (0.5-4.7); ABSOLUTE MONOCYTES (AUTO) 0.6 10^3/uL (0.1-1.4); BASOPHILS % (AUTO) 0.7 % (0-2); EOSINOPHILS % (AUTO) 1.4 % (0-6); HEMOGLOBIN 13.6 g/dL (12.0-15.5); HGB HCT DIFFERENCE -1.2; LYMPHOCYTES % (AUTO) 31.8 % (13-45); MEAN CORPUSCULAR HEMOGLOBIN 26.5 pg (27.0-33.4); MEAN CORPUSCULAR HGB CONC 32.3 g/dL (32.0-36.0); MEAN CORPUSCULAR VOLUME 82 fl (80-97); MONOCYTES % (AUTO) 8.4 % (3-13); RED BLOOD COUNT 5.12 10^6/uL (3.72-5.28); RED CELL DISTRIBUTION WIDTH 14.2 % (11.5-14.0); SEGMENTED NEUTROPHILS % (AUTO) 57.7 % (42-78); WHITE BLOOD COUNT 6.9 10^3/uL (4.0-10.5)
[2016-11-10] MEDS ORDERED: MORPHINE SULFATE 10 MG/ML INJ IV ONE ×2 (06:57→09:36)
[2016-11-10] MEDS ORDERED: ONDANSETRON HCL INJ/PF 4 MG/2 ML SDV IV ONE ×2 (06:57→09:18)
[2016-11-10] MEDS ORDERED: NORMAL SALINE 1000 ML 1,000 ML IV ONE ×2 (06:57)
--- NOTE | 2016-11-10 08:08 | ER Document Report ---
ED General - General Chief Complaint: Abdominal Cramping Stated Complaint: SEVERE ABDOMINAL PAIN Time Seen by Provider: 11/10/16 06:40 TRAVEL OUTSIDE OF THE [place] IN LAST 30 DAYS: No - HPI Patient complains to provider of: Abdominal pain Notes: Patient has a history of Crohn's disease been diagnosed for approximately 3 years has been on Remicade for approximately 6 months. Patient was recently admitted to the hospital for small bowel obstruction however left AGAINST MEDICAL ADVICE. Patient states since that time pain has increased patient is having nausea vomiting and diarrhea patient states pain has not improved since her discharge. Denies any fevers chills patient denies any recent antibiotics denies any other medical complications of her hypertension. - Related Data Allergies/Adverse Reactions: latex [Latex] Allergy (Verified 11/10/16 03:53) Past Medical History - Social History Smoking Status: Unknown if Ever Smoked Family History: DM, Hypertension, Malignancy - Breast cancer in a great aunt. Ovarian cancer in a cousin. Patient has suicidal ideation: No Patient has homicidal ideation: No - Past Medical History Cardiac Medical History: Reports: Hx Hypertension Renal/ Medical History: Denies: Hx Peritoneal Dialysis GI Medical History: Reports: Hx Crohn's Disease, Hx Gastroesophageal Reflux Disease Psychiatric Medical History: Denies: Hx Depression Past Surgical History: Reports: Hx Oral Surgery - [place] teeth, Other - EGD and colonoscopy - Immunizations Hx Diphtheria, Pertussis, Tetanus Vaccination: Yes - 2010 Review of Systems - Review of Systems Constitutional: No symptoms reported EENT: No symptoms reported Cardiovascular: No symptoms reported Respiratory: No symptoms reported Gastrointestinal: Abdominal pain Genitourinary: No symptoms reported Female Genitourinary: No symptoms reported Musculoskeletal: No symptoms reported Skin: No symptoms reported Hematologic/Lymphatic: No symptoms reported Neurological/Psychological: No symptoms reported -: Yes All other systems reviewed and negative Physical Exam - Vital signs Vitals: Temp Pulse Resp BP Pulse Ox 98.6 F 101 H 18 153/100 H 100 11/10/16 01:23 11/10/16 01:23 11/10/16 01:23 11/10/16 01:23 11/10/16 01:23 Interpretation: Normal - General General appearance: Appears well, Alert - HEENT Head: Normocephalic, Atraumatic Eyes: Normal Pupils: PERRL - Respiratory Respiratory status: No respiratory distress Chest status: Nontender Breath sounds: Normal Chest palpation: Normal - Cardiovascular Rhythm: Regular Heart sounds: Normal auscultation Murmur: No - Abdominal Inspection: Normal Distension: Distended Bowel sounds: Hyperactive Tenderness: Tender - Diffuse abdominal tenderness with distention high-pitched abdominal bowel sounds hyperactive Organomegaly: No organomegaly - Back Back: Normal, Nontender - Extremities General upper extremity: Normal inspection, Nontender, Normal color, Normal ROM , Normal temperature General lower extremity: Normal inspection, Nontender, Normal color, Normal ROM , Normal temperature, Normal weight bearing. No: Greg's sign - Neurological Neuro grossly intact: Yes Cognition: Normal Orientation: AAOx4 Omayra Coma Scale Eye Opening: Spontaneous Omayra Coma Scale Verbal: Oriented [place] Coma Scale Motor: Obeys Commands [place] Coma Scale Total: 15 Speech: Normal Motor strength normal: LUE, RUE, LLE, RLE Sensory: Normal - Psychological Associated symptoms: Normal affect, Normal mood - Skin Skin Temperature: Warm Skin Moisture: Dry Skin Color: Normal Course - Re-evaluation Re-evalutation: 11/10/16 08:03 Discussed with surgery stephy Byrd. Requesting to obtain ct oral contrast 11/10/16 13:33 CT scan was performed after the initial scan due to the length contrast getting to the distal bowel radiologist requested that we rescan the patient however did state that there was a stricture seen and that she would recommend surgery be involved at this time. Due to the possibility in the left care due to initially surgery wanting to wait for delayed CTs CAT scan findings I did go ahead and give the patient 1 dose of Invanz. I did recontact the surgeon executive talent acquisition consultant who did come down to evaluate the patient states that he would recommend transfer to tertiary care facility where the patient can see GI specialist [facility] transferring facility was contacted. Patient's case was notified by transfer team and patient did have a accepting physician Dr. Grey surgery did not conference with Dr. Grey states he knows the patient very well. NG tube was placed with good output. - Vital Signs Vital signs: Temp Pulse Resp BP Pulse Ox 98.3 F 101 H 13 161/109 H 100 11/10/16 13:00 11/10/16 01:23 11/10/16 13:01 11/10/16 13:00 11/10/16 13:01 - Laboratory Result Diagrams: 11/10/16 04:00 11/10/16 04:00 Laboratory results interpreted by me: 11/10/16 11/10/16 11/10/16 02:29 04:00 04:00 MCH 26.5 L RDW 14.2 H Glucose 72 L Direct Bilirubin 0.5 H Urine Urobilinogen 2.0 H Critical Care Note - Critical Care Note Total time excluding time spent on procedures (mins): 35 Comments: Multiple evaluations for patient with small bowel obstruction more likely due to stricture due to Crohn's disease. Time spent discussing with surgeons in transferring facility. Discharge - Discharge Clinical Impression: Small bowel obstruction Crohns disease Qualifiers: Gastrointestinal tract location: small intestine Digestive disease complication type: with intestinal obstruction Qualified Code(s): K50.012 - Crohn's disease of small intestine with intestinal obstruction Condition: Good Disposition: [facility]
[2016-11-10] MEDS ORDERED: MORPHINE SULFATE 10 MG/ML INJ IV PRN (09:36)
[2016-11-10] MEDS ORDERED: ONDANSETRON HCL INJ/PF 4 MG/2 ML SDV IV PRN (09:36)
[2016-11-10] MEDS ORDERED: PHARMACY COMMUNICATION ORDER MC NR (10:45)
[2016-11-10] MEDS ORDERED: ERTAPENEM SODIUM INJ 1 GM VIAL IV ONE (10:45)
[2016-11-10] MEDS ORDERED: LIDOCAINE 1% INJ-PF (10 MG/ML) 30 ML SDV NEB ONE (10:45)
--- NOTE | 2016-11-10 11:54 | RADIOLOGY REPORT (SQ) ---
EXAM DESCRIPTION: CT ABD/PELVIS WITH IV ORAL COMPLETED DATE/TIME: 11/10/2016 10:11 am REASON FOR STUDY: sbo hx of crohn's COMPARISON: Abdominal films 11/10/2016, 11/04/2016, 11/02/2016, 09/10/2016, 04/24/2016 Upper GI small bowel follow-through 11/03/2016 CT abdomen pelvis 11/01/2016, 09/10/2016, 03/20/2016 TECHNIQUE: CT scan of the abdomen and pelvis performed using helical scanning technique with dynamic intravenous contrast injection. Patient drank Oral contrast. Images reviewed with lung, soft tissue, and bone windows. Reconstructed coronal and sagittal MPR imag es reviewed. Delayed images for evaluation of the urinary system also acquired. All images stored on PACS. All CT scanners at this facility use dose modulation, iterative reconstruction, and/or weight based d osing when appropriate to reduce radiation dose to as low as reasonably achievable (ALARA). [facility]: Dose Right [facility]: CareDose [facility]: Dose Right [facility]: Teradose 4D [facility]: Oneflare CONTRAST TYPE AND DOSE: contrast/concentration: Isovue 370.00 mg/ml; Total Contrast Delivered: 71.0 ml; Total Saline Delivered: 66.0 ml RENAL FUNCTION: Creatinine 0.81 RADIATION DOSE: Up-to-date CT equipment and radiation dose reduction techniques were employed. CTDIv ol: 5.9 - 8.2 mGy. DLP: 750 mGy-cm.. LIMITATIONS: None. FINDINGS: Patient gives a history of Crohn's disease and abdominal pain. Patient drank oral contras t. Stomach, duodenum and proximal small bowel are unremarkable. In the mid to distal small bowel, a very dilated loop is present in the periumbilical region, with a focal transition point to decompres sed distal small bowel identified on coronal images 30-34. Findings are compatible with small bowel obstruction. Report discussed with Dr Lehman in the emergency room. The distal ileum and colon are decompressed. There is no definite free intraperitoneal air or fluid. LOWER CHEST: No significant findings. No nodules or infiltrates. LIVER: Normal size. No masses. No dilated ducts. SPLEEN: Normal size. No focal lesions. PANCREAS: No masses. No significant calcifications. No adjacent inflammation or peripancreatic fluid collections. Pancreatic duct not dilated. GALLBLADDER: No identified stones by CT criteria. No inflammatory changes to suggest cholecystitis. ADRENAL GLANDS: No significant masses or asymmetry. RIGHT KIDNEY AND URETER: No solid masses. No significant calcifications. No hydronephrosis or hyd roureter. LEFT KIDNEY AND URETER: No solid masses. No significant calcifications. No hydronephrosis or hydr oureter. AORTA AND VESSELS: No aneurysm. No dissection. Renal arteries, SMA, celiac without stenosis. RETROPERITONEUM: No retroperitoneal adenopathy, hemorrhage or masses. 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 R emainder of the female pelvic organs are unremarkable. Urinary bladder unremarkable. Physiologic pe lvic fluid. No adenopathy. ABDOMINAL WALL: No masses. No hernias. BONES: No significant or acute findings. OTHER: No other significant finding. IMPRESSION: Small bowel obstruction with transition point identified on the coronal reconstructions in the mid to distal small bowel. TECHNICAL DOCUMENTATION: JOB ID: [id number] Quality ID # [id number]: Final reports with documentation of one or more dose reduction techniques (e.g., Au tomated exposure control, adjustment of the mA and/or kV according to patient size, use of iterative reconstruction technique) 2010 [employer]- All Rights Reserved
--- NOTE | 2016-11-10 12:12 | RADIOLOGY REPORT (SQ) ---
EXAM DESCRIPTION: KUB/ABDOMEN (SINGLE VIEW) COMPLETED DATE/TIME: 11/10/2016 11:56 am REASON FOR STUDY: Check Placement of NG Tube COMPARISON: CT abdomen pelvis 11/10/2016, 11/01/2016, 08/31/2016 Abdominal films 11/10/2016, 11/04/2016, 11/02/2016, 09/10/2016 Upper GI small bowel series 11/03/2016 NUMBER OF VIEWS: One view. TECHNIQUE: Supine radiographic image of the abdomen acquired. LIMITATIONS: None. FINDINGS: BOWEL GAS PATTERN: Persistent dilated small bowel loops in the mid and lower abdomen worri some for small bowel obstruction. Oral contrast for CT is mainly and proximal small bowel loops in the left upper quadrant. CALCIFICATIONS: No suspicious calcifications. SOFT TISSUES: No gross mass or suggestion of organomegaly. HARDWARE: Nasogastric tube tip and side port in the stomach. BONES: No acute fracture. No worrisome bone lesions. OTHER: There is excreted IV contrast in nondilated renal collecting systems and ureters. IMPRESSION: Persistent dilated mid small bowel loops worrisome for small bowel obstruction. Nasogastric tube tip and side port in the stomach. TECHNICAL DOCUMENTATION: JOB ID: [id number] [employer]- All Rights Reserved
[2016-11-10] MEDS ORDERED: DEXTROSE 5%-LACTATED RINGERS 1,000 ML IV ONE (13:09)
--- NOTE | 2016-11-10 13:23 | CONSULTATION REPORT E ---
Consultation Report NAME: MACKENZIE MCGEE : 1980 AGE: 36Y DATE: 11/10/2016 TO: SARAH BENITO M.D. FROM: Kaylyn SUAREZ, Requesting Physician Thank you for asking me to see this 36-year-old -[place] female who comes to the Emergency Room with a 2-day history of obstipation, intense abdominal discomfort, nausea and emesis. PAST MEDICAL HISTORY: Significant for Crohn disease for the last 3 years, hypertension. ALLERGIES: The patient is ALLERGIC TO LATEX. MEDICATIONS: The patient is on vitamin D2, Norvasc and Remicade. SOCIAL HISTORY: The patient denies abuse of alcohol, drugs and tobacco. REVIEW OF SYSTEMS: A 12-point review of systems was performed and significant for Crohn disease and hypertension. REVIEW OF LABORATORY STUDIES: Electrolytes within normal limits. Lipid profile is normal. Lipase is 80. Urinalysis within normal limits. White blood cell count 6.9, H and H 15 and 42, platelet count 340. CT scan of the abdomen and pelvis done with IV and oral contrast (no written report available) shows the presence of a closed loop of small bowel dilated as per very distended small bowel loop identified on a CT scan ( better seen in the coronal views). PHYSICAL EXAMINATION: GENERAL: The patient is alert, oriented x3, moderate distress due to the pain. VITAL SIGNS: Stable. Patient is afebrile. Blood pressure 131/89, pulse 89, respirations 12, saturating 100% on room air. HEENT: Second through twelfth cranial nerves are within normal limits. NECK: Supple without masses. CHEST: Symmetric bilaterally. LUNGS: Clear to auscultation bilaterally. HEART: Regular rhythm and rate. ABDOMEN: Soft, nondistended. Tender in the mid abdomen. Positive bowel sounds. EXTREMITIES: Upper extremities equal and symmetric bilaterally without deficits. NEUROLOGIC: Equal and symmetric bilaterally without deficits. SKIN: Warm, dry, and intact without lesions. ASSESSMENT AND PLAN: 1. Abdominal pain. 2. Single loop of small bowel distended as identified on CAT scan. 3. History of Crohn disease, on Remicade. 4. Obstipation for 3 days. PLAN: 1. I am recommending to insert a nasogastric tube. 2. Continue aggressive IV hydration (the patient has already received 2 liters of normal saline). 3. Due to the presence of Crohn disease, my recommendation would be to transfer the patient to a tertiary, referral medical center where there is more specialized surgical services for patients with such a disease which might not require any surgical intervention, rather treated with appropriate medications for her inflammatory process. DICTATING PHYSICIAN: SARAH BENITO M.D. [id number] PHY#: [id number] ID: [id number] JOB#: [id number] ACCT: [id number] cc:SARAH BENITO M.D. > MTDD
[2016-11-10 15:15] VITALS: BP 153/105
== END 2016-11-10 15:15 | disposition short-term general hospital (02) ==
LOC: ER 01:19
DX: K50.012 Crohn's disease of small intestine with intestinal obstruction (principal); Z79.899 Other long term (current) drug therapy; R11.2 Nausea with vomiting, unspecified; R19.7 Diarrhea, unspecified; R10.9 Unspecified abdominal pain; I10 Essential (primary) hypertension
CPT/HCPCS: 96376; 99291; 96361; 96375; 96365; 36415; 87040; 83605; 83690; 85025; 82272; 81025; 80053; 81001; 74022; 74000; 74177; J1335; J3490; J2270; J2405; J7030

== ENCOUNTER 2016-11-29 05:13 | Emergency (ER) | payer MEDICAID ==
[2016-11-29] MEDS ORDERED: NORMAL SALINE 1000 ML 1,000 ML IV ONE ×2 (06:18)
[2016-11-29] MEDS ORDERED: MORPHINE SULFATE 10 MG/ML INJ IV ONE ×2 (06:34→10:54)
[2016-11-29] MEDS ORDERED: ONDANSETRON HCL INJ/PF 4 MG/2 ML SDV IV ONE (06:34)
[2016-11-29 07:00] LABS: ABSOLUTE BASOPHILS # (AUTO) 0.1 10^3/uL (0.0-0.2); ABSOLUTE EOSINOPHILS # (AUTO) 0.1 10^3/uL (0.0-0.6); ABSOLUTE LYMPHOCYTES (AUTO) 1.3 10^3/uL (0.5-4.7); ABSOLUTE MONOCYTES (AUTO) 0.5 10^3/uL (0.1-1.4); ABSOLUTE NEUT (AUTO) 4.2 10^3/uL (1.7-8.2); BASOPHILS % (AUTO) 0.9 % (0-2); EOSINOPHILS % (AUTO) 1.6 % (0-6); HEMATOCRIT 40.4 % (36.0-47.0); HEMOGLOBIN 13.3 g/dL (12.0-15.5); HGB HCT DIFFERENCE -0.5; LYMPHOCYTES % (AUTO) 21.3 % (13-45); MEAN CORPUSCULAR HEMOGLOBIN 26.7 pg (27.0-33.4); MEAN CORPUSCULAR HGB CONC 32.9 g/dL (32.0-36.0); MEAN CORPUSCULAR VOLUME 81 fl (80-97); MONOCYTES % (AUTO) 7.7 % (3-13); RED BLOOD COUNT 4.98 10^6/uL (3.72-5.28); RED CELL DISTRIBUTION WIDTH 14.1 % (11.5-14.0); SEGMENTED NEUTROPHILS % (AUTO) 68.5 % (42-78); WHITE BLOOD COUNT 6.1 10^3/uL (4.0-10.5)
[2016-11-29 07:19] LABS: ALANINE AMINOTRANSFERASE 18 U/L (9-52); ALBUMIN 3.8 g/dL (3.5-5.0); ALKALINE PHOSPHATASE 117 U/L (38-126); ANION GAP 12 (5-19); ASPARTATE AMINO TRANSFERASE 11 U/L (14-36); BILIRUBIN,DIRECT 0.4 mg/dL (0.0-0.4); BILIRUBIN,TOTAL 0.6 mg/dL (0.2-1.3); BLOOD UREA NITROGEN 11 mg/dL (7-20); CALCIUM 9.7 mg/dL (8.4-10.2); CARBON DIOXIDE 22 mmol/L (22-30); CHLORIDE 103 mmol/L (98-107); CREATININE RESULT 0.73 mg/dL (0.52-1.25); GLUCOSE 77 mg/dL (75-110); LIPASE 37.3 U/L (23-300); POTASSIUM 3.9 mmol/L (3.6-5.0); SODIUM 136.7 mmol/L (137-145); TOTAL PROTEIN 7.4 g/dL (6.3-8.2)
--- NOTE | 2016-11-29 07:35 | RADIOLOGY REPORT (SQ) ---
EXAM DESCRIPTION: ACUTE ABDOMEN SERIES COMPLETED DATE/TIME: 11/29/2016 7:18 am REASON FOR STUDY: eval sbo hx of Crohn's COMPARISON: CT abdomen and pelvis and KUB 11/10/2016. NUMBER OF VIEWS: Three views. TECHNIQUE: Frontal chest, supine abdomen and upright/decubitus abdomen radiographic images acquired. LIMITATIONS: None. FINDINGS: CHEST: No consolidation, pleural effusion or pneumothorax. FREE AIR: None. BOWEL GAS PATTERN: Dilated small bowel loops to 7.1 cm. Residual oral contrast is seen in the colon. CALCIFICATIONS: No suspicious calcifications. HARDWARE: None in the abdomen. SOFT TISSUES: No gross mass or suggestion of organomegaly. BONES: No acute findings. IMPRESSION: Dilated small bowel loops, worrisome for small bowel obstruction. Residual oral contrast in the colon, please correlate with recent imaging study performed elsewhere. TECHNICAL DOCUMENTATION: JOB ID: [id number] 2010 [employer]- All Rights Reserved
[2016-11-29 08:13] LABS: APPEARANCE,URINE CLEAR; BILIRUBIN,URINE NEGATIVE (NEGATIVE); GLUCOSE, URINE NEGATIVE (NEGATIVE); KETONES,URINE 20 mg/dL (NEGATIVE); LEUKOCYTE ESTERASE,URINE NEGATIVE (NEGATIVE); NITRITE,URINE NEGATIVE (NEGATIVE); PROTEIN,URINE NEGATIVE (NEGATIVE); URINE SPECIFIC GRAVITY 1.028
--- NOTE | 2016-11-29 11:13 | ER Document Report ---
ED General - General Chief Complaint: Abdominal Pain Stated Complaint: ABDOMINAL PAIN Time Seen by Provider: 11/29/16 06:16 TRAVEL OUTSIDE OF THE [place] IN LAST 30 DAYS: No - HPI Patient complains to provider of: Abdominal pain Notes: Patient has a history of Crohn's disease and multiple visits to this ER recently. 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 Patient states hospitalization was uneventful patient did not undergo any surgery however today continues to have abdominal pain. Patient states currently not taking any suppressing medication but recently was on Remicade denies any recent steroids or antibiotics. Patient states nausea vomiting states last bowel movement hard stool patient states recently had a CAT scan performed at [facility] on the . - Related Data Allergies/Adverse Reactions: latex [Latex] Allergy (Verified 11/29/16 05:19) Past Medical History - Social History Smoking Status: Unknown if Ever Smoked Chew tobacco use (# tins/day): No Frequency of alcohol use: None Drug Abuse: None Family History: DM, Hypertension, Malignancy - Breast cancer in a great aunt. Ovarian cancer in a cousin. - Past Medical History Cardiac Medical History: Reports: Hx Hypertension Renal/ Medical History: Denies: Hx Peritoneal Dialysis GI Medical History: Reports: Hx Crohn's Disease, Hx Gastroesophageal Reflux Disease Psychiatric Medical History: Denies: Hx Depression Past Surgical History: Reports: Hx Oral Surgery - [place] teeth, Other - EGD and colonoscopy - Immunizations Hx Diphtheria, Pertussis, Tetanus Vaccination: Yes - 2010 Review of Systems - Review of Systems Constitutional: No symptoms reported EENT: No symptoms reported Cardiovascular: No symptoms reported Respiratory: No symptoms reported Gastrointestinal: Abdominal pain Genitourinary: No symptoms reported Female Genitourinary: No symptoms reported Musculoskeletal: No symptoms reported Skin: No symptoms reported Hematologic/Lymphatic: No symptoms reported Neurological/Psychological: No symptoms reported -: Yes All other systems reviewed and negative Physical Exam - Vital signs Vitals: Temp Pulse Resp BP Pulse Ox 98.4 F 98 22 H 154/109 H 100 11/29/16 05:17 11/29/16 05:17 11/29/16 05:17 11/29/16 05:17 11/29/16 05:17 Interpretation: Normal - General General appearance: Alert, Other - Patient appears uncomfortable but nontoxic - HEENT Head: Normocephalic, Atraumatic Eyes: Normal Pupils: PERRL - Respiratory Respiratory status: No respiratory distress Chest status: Nontender Breath sounds: Normal Chest palpation: Normal - Cardiovascular Rhythm: Regular Heart sounds: Normal auscultation Murmur: No - Abdominal Inspection: Normal Distension: No distension Bowel sounds: Normal Tenderness: Tender - Diffuse abdominal pain Organomegaly: No organomegaly - Back Back: Normal, Nontender - Extremities General upper extremity: Normal inspection, Nontender, Normal color, Normal ROM , Normal temperature General lower extremity: Normal inspection, Nontender, Normal color, Normal ROM , Normal temperature, Normal weight bearing. No: Greg's sign - Neurological Neuro grossly intact: Yes Cognition: Normal Orientation: AAOx4 [place] Coma Scale Eye Opening: Spontaneous [place] Coma Scale Verbal: Oriented Omayra Coma Scale Motor: Obeys Commands Omayra Coma Scale Total: 15 Speech: Normal Motor strength normal: LUE, RUE, LLE, RLE Sensory: Normal - Psychological Associated symptoms: Normal affect, Normal mood - Skin Skin Temperature: Warm Skin Moisture: Dry Skin Color: Normal Course - Re-evaluation Re-evalutation: 11/29/16 14:44 The patient presents with abdominal pain without signs of peritonitis or other life-threatening or serious etiology. The patient appears stable for discharge and has been instructed to return immediately if the symptoms worsen in any way , or in 8-12hr if not improved for re-evaluation. The patient has been instructed to return if the symptoms worsen or change in any way. Discuss case with patient's surgeon at [facility] although the acute abdominal series here shows a possible small bowel obstruction pattern patient has a known stricture that causes obstruction. I did have our surgeon asset protection lead Dr. Oliva, and evaluate the patient agrees the patient would more likely be best served at her tertiary care facility agrees at this time no need for NG tube this patient has not had any active vomiting since here in the ER and was able to tolerate an initial bottle of oral contrast. Discussed with the patient's surgeon Dr. Bueno at [facility] agrees to continue the patient's full liquid diet at this time the need for NG tube patient otherwise is nontoxic appearing does not look to have a small bowel obstruction encouraged patient to use a laxative and encouraged patient to follow-up in the facility still currently waiting to schedule the patient for surgery for lysis of adhesions and possible reduction of stricture discussed plan with patient patient understands and agrees to follow-up with her primary care physicians and GI specialist. - Vital Signs Vital signs: Temp Pulse Resp BP Pulse Ox 98.7 F 68 16 152/96 H 100 11/29/16 11:28 11/29/16 11:28 11/29/16 11:28 11/29/16 11:28 11/29/16 11:28 - Laboratory Result Diagrams: 11/29/16 06:52 11/29/16 06:52 Laboratory results interpreted by me: 11/29/16 11/29/16 11/29/16 06:52 06:52 07:55 MCH 26.7 L RDW 14.1 H Sodium 136.7 L AST 11 L Urine Ketones 20 H Urine Urobilinogen 2.0 H Discharge - Discharge Clinical Impression: Small bowel stricture Abdominal pain Qualifiers: Abdominal location: unspecified location Qualified Code(s): R10.9 - Unspecified abdominal pain Crohns disease Qualifiers: Gastrointestinal tract location: unspecified location Digestive disease complication type: unspecified complication Qualified Code(s): K50.919 - Crohn' s disease, unspecified, with unspecified complications Condition: Good Disposition: HOME, SELF-CARE Instructions: Abdominal Pain ([facility]) Additional Instructions: I discussed your case with your surgeon at [facility] at this time continue with your liquid diet. Your x-ray today does show signs of slight constipation would recommend adding Senokot to your docusate we will also try another antispasmodic. Please follow-up with your GI specialist return to the ER if her symptoms worsen Prescriptions: Hyoscyamine Sulfate [Symax] 0.125 mg PO Q6 #20 tab.rapdis Sennosides [Senna Laxative] 8.6 mg PO BID #20 tablet Forms: Return to Work
[2016-11-29 11:36] VITALS: BP 152/96
--- NOTE | 2016-11-29 12:12 | CONSULTATION REPORT E ---
Consultation Report NAME: MACKENZIE MCGEE : 1980 AGE: 36Y DATE: 11/29/2016 TO: MICKIE GORDON M.D. FROM: Kaylyn SUAREZ, Requesting Physician REASON FOR CONSULTATION: Patient with dilated small bowel loops and history of Crohn disease. HISTORY OF PRESENT ILLNESS: This is a 36-year-old female who has been complaining of off and on crampy abdominal pains. She was here most recent was November 10 for the same complaints and sent to [facility] where she stayed there for a week. She was seen by canvas worker and by a surgeon. She claimed that she is supposed to start a new medication for her Crohns and she mentioned possibility of having surgery there but she apparently was discharged to home after about a week. She comes back to the emergency room with the same abdominal pains and an x-ray of the abdomen showed dilated small bowel loops worrisome for small bowel obstruction. She claims she had one episode of vomiting this morning. She usually takes Dulcolax tablets to help her have a bowel movement. She used to be on Remicade. REVIEW OF SYSTEMS: As in HPI for GI. Abdominal pain is crampy and *------* 3 out of 5. The pain is mostly in the epigastric and right upper quadrant areas. She had a bowel movement yesterday but a small amount. She denies any diarrhea whatever. She feels that she is more constipated. Denies any chest pain, shortness of breath. She claims that when she voids she feels like there is some pressure over her bladder area. There is some generalized weakness. She claims she lost about 8 pounds in the past 2 weeks. No easy bruisability, hearing or eye problems. No sore throat. No balance problems. No seizures. Other systems reviewed and none significant. FAMILY HISTORY: Noncontributory. Nobody in the family had Crohn's. SOCIAL HISTORY: Smokes maybe 1-2 cigarettes a day. Denies alcohol or drug use. ALLERGIES: No known. PHYSICAL EXAM: GENERAL: Well-developed, well-nourished, 36-year-old female, alert and oriented, complaining of abdominal pain. HEAD: Head is normocephalic, atraumatic. NECK: Supple. No thyromegaly. LUNGS: Clear. HEART: Regular sinus rhythm. ABDOMEN: Soft with some fullness in the right upper quadrant with mild tenderness. EXTREMITIES: No edema. IMPRESSION: Crohn disease with partial small bowel obstruction. RECOMMENDATION: Patient needs to have a dedicated canvas worker and she has one in [facility]. I would recommend her to go back to [facility] for further management. The *------* surgeon who saw her there could probably see her again and further evaluate the timing of possible surgery. At this time, I do not think she needs any emergent surgery. Her white count is normal at 6000. She did have a bowel movement yesterday. She may or may not need an NG tube at this time but if she is not nauseated at this time we could probably hold off on placing one. DICTATING PHYSICIAN: MICKIE GORDON M.D. [id number] PHY#: [id number] ID: [id number] JOB#: [id number] ACCT: [id number] cc:MICKIE GORDON M.D. >
== END 2016-11-29 12:00 | disposition home or self-care (01) ==
LOC: ER 05:13
DX: K50.912 Crohn's disease, unspecified, with intestinal obstruction (principal); I10 Essential (primary) hypertension; R11.2 Nausea with vomiting, unspecified; Z91.040 Latex allergy status
CPT/HCPCS: 99284; 96361; 96374; 96375; 36415; 83690; 85025; 81025; 80053; 81001; 83605; 74022; J2270; J2405; J7030; 74177

== ENCOUNTER 2016-11-29 21:59 | Emergency (ER) | payer MEDICAID ==
[2016-11-30] MEDS ORDERED: NORMAL SALINE 1000 ML 1,000 ML IV ONE (00:04)
[2016-11-30] MEDS ORDERED: ONDANSETRON HCL INJ/PF 4 MG/2 ML SDV IV ONE ×2 (00:04→09:24)
[2016-11-30 00:13] LABS: ABSOLUTE BASOPHILS # (AUTO) 0.1 10^3/uL (0.0-0.2); ABSOLUTE EOSINOPHILS # (AUTO) 0.1 10^3/uL (0.0-0.6); ABSOLUTE LYMPHOCYTES (AUTO) 1.7 10^3/uL (0.5-4.7); ABSOLUTE MONOCYTES (AUTO) 0.5 10^3/uL (0.1-1.4); ABSOLUTE NEUT (AUTO) 4.9 10^3/uL (1.7-8.2); BASOPHILS % (AUTO) 0.8 % (0-2); EOSINOPHILS % (AUTO) 1.1 % (0-6); HEMATOCRIT 43.8 % (36.0-47.0); HEMOGLOBIN 14.2 g/dL (12.0-15.5); HGB HCT DIFFERENCE -1.2; LYMPHOCYTES % (AUTO) 23.7 % (13-45); MEAN CORPUSCULAR HEMOGLOBIN 26.5 pg (27.0-33.4); MEAN CORPUSCULAR HGB CONC 32.4 g/dL (32.0-36.0); MEAN CORPUSCULAR VOLUME 82 fl (80-97); RED BLOOD COUNT 5.36 10^6/uL (3.72-5.28); RED CELL DISTRIBUTION WIDTH 14.6 % (11.5-14.0); SEGMENTED NEUTROPHILS % (AUTO) 67.4 % (42-78); WHITE BLOOD COUNT 7.3 10^3/uL (4.0-10.5)
[2016-11-30] MEDS ORDERED: MIDAZOLAM 2 MG/2 ML INJ IV ONE (00:18)
[2016-11-30] MEDS: MORPHINE SULFATE 10 MG/ML INJ IV PRN ×7 (00:19→19:54)
--- NOTE | 2016-11-30 00:20 | ER Document Report ---
ED General - General Chief Complaint: Abdominal pain/ N/V Stated Complaint: VOMITING Time Seen by Provider: 11/29/16 23:32 Notes: Patient is a 36 year old female with a past medical history Crohn's disease not currently on any immune suppressants, no prior surgical management who is presenting again today for abdominal pain with associated vomiting. She has not had a bowel movement in 3 days and no flatus for the past 36 hours. Patient has had multiple similar presentations in the recent past and has been found to have small bowel obstructions. She has never required surgical management of her prior small bowel obstructions. During her evaluation the emergency department earlier today and x-ray was suggestive of a recurrent SBO, surgery was consulted and transfer versus discharge home with some somatic management was recommended. Patient states she went home and became much more ill with progressively worsening abdominal pain that she describes a severe, constant, cramping pain. Nothing improves or worsens her pain. She notes associated nonbilious vomiting. TRAVEL OUTSIDE OF THE [place] IN LAST 30 DAYS: No - Related Data Allergies/Adverse Reactions: latex [Latex] Allergy (Verified 11/29/16 05:19) Past Medical History - General Information source: Patient - Social History Smoking Status: Never Smoker Frequency of alcohol use: None Drug Abuse: None Lives with: Spouse/Significant other Family History: DM, Hypertension, Malignancy - Breast cancer in a great aunt. Ovarian cancer in a cousin. - Past Medical History Cardiac Medical History: Reports: Hx Hypertension Renal/ Medical History: Denies: Hx Peritoneal Dialysis GI Medical History: Reports: Hx Crohn's Disease, Hx Gastroesophageal Reflux Disease Psychiatric Medical History: Denies: Hx Depression Past Surgical History: Reports: Hx Oral Surgery - [place] teeth, Other - EGD and colonoscopy - Immunizations Hx Diphtheria, Pertussis, Tetanus Vaccination: Yes - 2010 Review of Systems - Review of Systems Notes: Constitutional: Negative for fever. HENT: Negative for sore throat. Eyes: Negative for visual changes. Cardiovascular: Negative for chest pain. Respiratory: Negative for shortness of breath. Gastrointestinal: Positive for abdominal pain and vomiting Genitourinary: Negative for dysuria. Musculoskeletal: Negative for back pain. Skin: Negative for rash. Neurological: Negative for headaches, weakness or numbness. 10 point ROS negative except as marked above and in HPI. Physical Exam - Vital signs Vitals: Resp BP 23 H 157/109 H 11/29/16 23:50 11/29/16 23:50 Interpretation: Tachycardic, Tachypneic Notes: PHYSICAL EXAMINATION: GENERAL: Appears to be uncomfortable, holding her abdomen HEAD: Atraumatic, normocephalic. EYES: Pupils equal round and reactive to light, extraocular movements intact, sclera anicteric, conjunctiva are normal. ENT: nares patent, oropharynx clear without exudates. Dry mucous membranes. NECK: Normal range of motion, supple without lymphadenopathy LUNGS: Breath sounds clear to auscultation bilaterally and equal. No wheezes rales or rhonchi. HEART: Regular rate and rhythm without murmurs ABDOMEN: soft with diffuse mild tenderness to palpation without any areas of rebound or guarding. Hypoactive bowel sounds EXTREMITIES: Normal range of motion, no pitting or edema. No cyanosis. NEUROLOGICAL: No focal neurological deficits. Moves all extremities spontaneously and on command. PSYCH: Normal mood, normal affect. SKIN: Warm, Dry, normal turgor, no rashes or lesions noted. Course - Re-evaluation Re-evalutation: 11/30/16 00:19 Patient presents after being in the emergency department less than 24 hours ago with active vomiting, diffuse abdominal pain consistent with a likely obstruction in the setting of a Crohn's flare. I have reviewed the prior ER physician's documentation at length and spoke with our surgeon on-call again Dr. Nuno who had consulted on the patient earlier. 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 Will repeat basic laboratories, and place NG tube, repeat KUB, and contacted [facility] for transfer. 11/30/16 02:28 I have spoken with the physician recreational assistant to the surgical service at [facility] feels that this is more appropriate for medical admission. Patient's symptoms are improved at this time. An NG tube has been placed. Awaiting to hear from the hospitalist service 11/30/16 02:42 I have spoken to the hospitalist on-call at [facility] and she is agreeable to admission at this time. Patient's symptoms remain improved at this time. Awaiting transport - Vital Signs Vital signs: Temp Pulse Resp BP Pulse Ox 16 148/117 H 99 11/30/16 01:44 11/30/16 01:45 11/30/16 01:44 - Laboratory Result Diagrams: 11/30/16 00:02 11/30/16 01:06 Laboratory results interpreted by me: 11/30/16 11/30/16 00:02 01:06 RBC 5.36 H MCH 26.5 L RDW 14.6 H Glucose 73 L Calcium 8.3 L Albumin 3.2 L - Diagnostic Test Radiology reviewed: Image reviewed, Reports reviewed Radiology results interpreted by me: 11/30/16 02:29 KUB: Dilated small bowel loops consistent with a small bowel obstruction Discharge - Discharge Clinical Impression: Small bowel obstruction, Small bowel stricture Crohns disease Qualifiers: Gastrointestinal tract location: unspecified location Digestive disease complication type: unspecified complication Qualified Code(s): K50.919 - Crohn' s disease, unspecified, with unspecified complications Condition: Fair Disposition: [facility]
[2016-11-30] MEDS ORDERED: BENZOCAINE 20% AEROSOL SPRAY 60 GM ONE (00:35)
[2016-11-30 01:28] LABS: ALANINE AMINOTRANSFERASE 16 U/L (9-52); ALBUMIN 3.2 g/dL (3.5-5.0); ALKALINE PHOSPHATASE 101 U/L (38-126); ANION GAP 10 (5-19); ASPARTATE AMINO TRANSFERASE 19 U/L (14-36); BILIRUBIN,DIRECT 0.3 mg/dL (0.0-0.4); BILIRUBIN,TOTAL 0.4 mg/dL (0.2-1.3); BLOOD UREA NITROGEN 9 mg/dL (7-20); CALCIUM 8.3 mg/dL (8.4-10.2); CARBON DIOXIDE 23 mmol/L (22-30); CHLORIDE 106 mmol/L (98-107); CREATININE RESULT 0.72 mg/dL (0.52-1.25); GLUCOSE 73 mg/dL (75-110); POTASSIUM 3.6 mmol/L (3.6-5.0); SODIUM 138.5 mmol/L (137-145); TOTAL PROTEIN 6.7 g/dL (6.3-8.2)
--- NOTE | 2016-11-30 02:34 | RADIOLOGY REPORT (SQ) ---
EXAM DESCRIPTION: KUB/ABDOMEN (SINGLE VIEW) COMPLETED DATE/TIME: 11/30/2016 2:06 am REASON FOR STUDY: eval obstruction COMPARISON: 11/29/2016. NUMBER OF VIEWS: One view. TECHNIQUE: Supine radiographic image of the abdomen acquired. LIMITATIONS: None. FINDINGS: BOWEL GAS PATTERN: 6.6 cm diameter bowel loops in the mid and upper abdomen with air-fluid levels. Enteric tube the tip and proximal port overlying the left upper abdominal quadrant. CALCIFICATIONS: No suspicious calcifications. SOFT TISSUES: No gross mass or suggestion of organomegaly. HARDWARE: None in the abdomen. BONES: No acute fracture. No worrisome bone lesions. OTHER: No other significant finding. IMPRESSION: Dilated bowel obstruction pattern, worsened. NG tube. TECHNICAL DOCUMENTATION: JOB ID: [id number] [employer]- All Rights Reserved
[2016-11-30] MEDS ORDERED: ONDANSETRON HCL INJ/PF 4 MG/2 ML SDV IV PRN (09:24)
[2016-11-30] MEDS ORDERED: HYDROMORPHONE HCL INJ/PF 2 MG/ML AMPULE IV ONE (16:19)
--- NOTE | 2016-11-30 16:21 | ER Document Report ---
Doctor's Note Notes: 11/30/16 16:20 Patient signed out to me at [address] Salmon treat pending transfer to [place]. Patient has a history of Crohn's disease known stricture was evaluated yesterday had a partial small bowel obstruction was sent home came back today with full bowel obstruction. She has an NG tube to suction blood pressures pressure at the bedside is slightly elevated she said that started after she was given steroids for prolonged period of time. She says the morphine is not helping so I ordered her dose of Dilaudid. Rest of her labs at this point is nonacute a redo a CBC and chemistry. I am told that we have a bed at [facility] and she is pending transfer at this point.
[2016-11-30 17:46] LABS: ABSOLUTE EOSINOPHILS # (AUTO) 0.1 10^3/uL (0.0-0.6); ABSOLUTE LYMPHOCYTES (AUTO) 1.8 10^3/uL (0.5-4.7); ABSOLUTE MONOCYTES (AUTO) 0.5 10^3/uL (0.1-1.4); ABSOLUTE NEUT (AUTO) 2.4 10^3/uL (1.7-8.2); BASOPHILS % (AUTO) 0.4 % (0-2); EOSINOPHILS % (AUTO) 2.6 % (0-6); HEMATOCRIT 37.1 % (36.0-47.0); HEMOGLOBIN 12.4 g/dL (12.0-15.5); HGB HCT DIFFERENCE 0.1; MEAN CORPUSCULAR HEMOGLOBIN 26.8 pg (27.0-33.4); MEAN CORPUSCULAR HGB CONC 33.3 g/dL (32.0-36.0); MEAN CORPUSCULAR VOLUME 81 fl (80-97); MONOCYTES % (AUTO) 9.6 % (3-13); RED CELL DISTRIBUTION WIDTH 14.4 % (11.5-14.0); SEGMENTED NEUTROPHILS % (AUTO) 50.4 % (42-78); WHITE BLOOD COUNT 4.7 10^3/uL (4.0-10.5)
[2016-11-30 17:59] LABS: ALANINE AMINOTRANSFERASE 22 U/L (9-52); ALBUMIN 3.3 g/dL (3.5-5.0); ALKALINE PHOSPHATASE 100 U/L (38-126); ANION GAP 10 (5-19); ASPARTATE AMINO TRANSFERASE 10 U/L (14-36); BILIRUBIN,DIRECT 0.4 mg/dL (0.0-0.4); BILIRUBIN,TOTAL 0.6 mg/dL (0.2-1.3); BLOOD UREA NITROGEN 7 mg/dL (7-20); CALCIUM 8.9 mg/dL (8.4-10.2); CARBON DIOXIDE 26 mmol/L (22-30); CHLORIDE 103 mmol/L (98-107); CREATININE RESULT 0.74 mg/dL (0.52-1.25); GLUCOSE 64 mg/dL (75-110); POTASSIUM 3.6 mmol/L (3.6-5.0); SODIUM 138.5 mmol/L (137-145); TOTAL PROTEIN 6.6 g/dL (6.3-8.2)
--- NOTE | 2016-11-30 20:15 | ER Document Report ---
Doctor's Note Notes: 11/30/16 20:14 Patient seen and evaluated at bedside transport to [facility]. Patient's pain is controlled after morphine she is hemodynamically stable and stable for transport to [facility]
[2016-11-30] MEDS ORDERED: DEXTROSE 50%-WATER 25 GM/50 ML DISP.SYRIN IV ONE ×2 (20:26→20:30)
[2016-12-01 00:35] VITALS: BP 150/104
== END 2016-11-30 20:30 | disposition short-term general hospital (02) ==
LOC: ER 21:59
DX: K50.912 Crohn's disease, unspecified, with intestinal obstruction (principal); R11.2 Nausea with vomiting, unspecified; R10.84 Generalized abdominal pain; R06.82 Tachypnea, not elsewhere classified; R00.0 Tachycardia, unspecified; I10 Essential (primary) hypertension; Z91.040 Latex allergy status
CPT/HCPCS: 36415; 74000; 80053; 82962; 85025; 96374; 96375; 96376; 99285

== ENCOUNTER 2019-11-02 10:09 | Inpatient (IN) | payer BC, MEDICAID ==
[2019-11-02] MEDS ORDERED: MORPHINE SULFATE 10 MG/ML INJ IV ONE ×2 (11:18→14:29)
[2019-11-02] MEDS ORDERED: ONDANSETRON HCL INJ/PF 4 MG/2 ML SDV IV ONE (11:18)
[2019-11-02] MEDS ORDERED: NORMAL SALINE 1000 ML 1,000 ML IV ONE ×2 (11:18→13:02)
--- NOTE | 2019-11-02 11:52 | ER Document Report ---
Entered by MARTHA CARTY SCRIBE 11/02/19 1055 Acting as scribe for:MINNIE TRINIDAD MD ED GI/ - General Chief Complaint: Nausea/Vomiting/Diarrhea Stated Complaint: ABDOMINAL PAIN Time Seen by Provider: 11/02/19 10:50 Information source: Patient, [facility] Records Notes: This 39-year-old female patient comes emergency room complaining of onset yesterday of nausea vomiting diarrhea. She reports she has vomited 5 times since yesterday. She had 12 episodes of diarrhea yesterday, 3 today since 6 AM. She does report intermittent severe abdominal cramps. She does have a past medical history of Crohn's disease, states that this feels very similar to previous exacerbations. There is no history of fever. She was exposed to a coworker with COVID on 10/07/2019 but never developed symptoms from this. TRAVEL OUTSIDE OF THE [place] IN LAST 30 DAYS: No - Related Data Allergies/Adverse Reactions: latex [Latex] Allergy (Verified 11/02/19 10:18) Past Medical History - General Information source: Patient, [facility] Records - Social History Smoking Status: Current Every Day Smoker Cigarette use (# per day): Yes Chew tobacco use (# tins/day): No Smoking Education Provided: No Frequency of alcohol use: None Drug Abuse: None Lives with: Family Family History: Reviewed & Not Pertinent, DM, Hypertension, Malignancy - Breast cancer in a great aunt. Ovarian cancer in a cousin. Patient has homicidal ideation: No - Past Medical History Cardiac Medical History: Reports: Hx Hypertension GI Medical History: Reports: Hx Crohn's Disease, Hx Gastroesophageal Reflux Di sease Past Surgical History: Reports: Hx Abdominal Surgery - Reports partial right colectomy in November 2016., Hx Oral Surgery - [place] teeth, Other - EGD and colonoscopy. Right hemicolectomy. - Immunizations Hx Diphtheria, Pertussis, Tetanus Vaccination: Yes - 2010 Review of Systems - Review of Systems Constitutional: denies: Fever EENT: No symptoms reported Cardiovascular: No symptoms reported Respiratory: No symptoms reported Gastrointestinal: See HPI, Diarrhea, Nausea, Vomiting Genitourinary: No symptoms reported Female Genitourinary: No symptoms reported Musculoskeletal: No symptoms reported Skin: No symptoms reported Hematologic/Lymphatic: No symptoms reported Neurological/Psychological: No symptoms reported -: Yes All other systems reviewed and negative Physical Exam - Vital signs Vitals: Temp Pulse Resp BP Pulse Ox 99.1 F 94 19 145/109 H 100 11/02/19 10:16 11/02/19 10:16 11/02/19 10:16 11/02/19 10:16 11/02/19 10:16 - General General appearance: Appears well, Alert In distress: Mild - HEENT Head: Normocephalic, Atraumatic Eyes: Normal Pupils: PERRL - Respiratory Respiratory status: No respiratory distress Breath sounds: Normal - Cardiovascular Rhythm: Regular Heart sounds: Normal auscultation Murmur: No - Abdominal Inspection: Obese Bowel sounds: Normal Tenderness: Tender - Back Back: Normal - Extremities General upper extremity: Normal inspection General lower extremity: Normal inspection - Neurological Neuro grossly intact: Yes - Psychological Associated symptoms: Normal affect, Normal mood - Skin Skin Temperature: Warm Skin Moisture: Dry Skin Color: Normal Course - Vital Signs Vital signs: Temp Pulse Resp BP Pulse Ox 98.5 F 87 16 139/90 H 99 11/02/19 18:39 11/02/19 18:39 11/02/19 18:39 11/02/19 18:39 11/02/19 18:39 - Laboratory Result Diagrams: 11/02/19 15:08 11/02/19 15:08 Laboratory results interpreted by me: 11/02/19 11/02/19 11/02/19 15:08 15:08 15:08 MCH 25.9 L RDW 14.6 H Chloride 111 H Carbon Dioxide 21 L Glucose 68 L Creatine Kinase 137 H C-Reactive Protein 21.7 H Lipase 8667.1 H Urine Blood 11/02/19 16:30 MCH RDW Chloride Carbon Dioxide Glucose Creatine Kinase C-Reactive Protein Lipase Urine Blood LARGE H - Diagnostic Test Radiology reviewed: Image reviewed, Reports reviewed - Acute abdominal series does not show acute process. Gallbladder ultrasound shows a distended gallbladder with no stones, no pericholecystic fluid, no gallbladder wall thickening. The pancreas is not well-visualized. - Consults Dr. Kennedy Time consulted: 19:45 Consulted provider: will come to ER Discharge - Discharge Clinical Impression: Nausea, vomiting and diarrhea Pancreatitis Qualifiers: Chronicity: acute Pancreatitis type: unspecified pancreatitis type Acute pancreatitis complication: no infection or necrosis Qualified Code(s): K85.90 - Acute pancreatitis without necrosis or infection, unspecified Condition: Stable Disposition: ADMITTED INPATIENT Admitting Provider: Marcia (Hospitalist) Unit Admitted: Medical Floor I personally performed the services described in the documentation, reviewed and edited the documentation which was dictated to the scribe in my presence, and it accurately records my words and actions.
--- NOTE | 2019-11-02 13:27 | RADIOLOGY REPORT (SQ) ---
EXAM DESCRIPTION: ACUTE ABDOMEN SERIES IMAGES COMPLETED DATE/TIME: 11/02/2019 12:59 pm REASON FOR STUDY: N,V,D H/O Crohn's COMPARISON: None. NUMBER OF VIEWS: Four views TECHNIQUE: Frontal chest, supine abdomen and upright/decubitus abdomen radiographic images acquired. LIMITATIONS: None. FINDINGS: CHEST: Lungs clear of infiltrates. FREE AIR: None. No abnormal gas collections. BOWEL GAS PATTERN: Nonobstructive pattern. No dilated loops or air fluid levels. CALCIFICATIONS: No suspicious calcifications. HARDWARE: Chain sutures are seen in the right lower quadrant. SOFT TISSUES: No gross mass or suggestion of organomegaly. BONES: No acute fracture. No worrisome bone lesions. OTHER: No other significant finding. IMPRESSION: Nonspecific, nonobstructed bowel gas pattern. Chain sutures are seen in the right lower quadrant. TECHNICAL DOCUMENTATION: JOB ID: [id number] 2010 [employer]- All Rights Reserved Reading location - IP/workstation name: [email or web address]
[2019-11-02] MEDS ORDERED: METOCLOPRAMIDE HCL INJ/PF 10 MG/2 ML SDV IV ONE (14:29)
[2019-11-02 15:27] LABS: ABSOLUTE BASOPHILS # (AUTO) 0.1 10^3/uL (0.0-0.2); ABSOLUTE EOSINOPHILS # (AUTO) 0.1 10^3/uL (0.0-0.6); ABSOLUTE LYMPHOCYTES (AUTO) 2.6 10^3/uL (0.5-4.7); ABSOLUTE MONOCYTES (AUTO) 0.2 10^3/uL (0.1-1.4); ABSOLUTE NEUT (AUTO) 3.1 10^3/uL (1.7-8.2); BASOPHILS % (AUTO) 1.1 % (0-2); EOSINOPHILS % (AUTO) 1.5 % (0-6); HEMATOCRIT 40.9 % (36.0-47.0); HEMOGLOBIN 13.1 g/dL (12.0-15.5); LYMPHOCYTES % (AUTO) 42.7 % (13-45); MEAN CORPUSCULAR HEMOGLOBIN 25.9 pg (27.0-33.4); MEAN CORPUSCULAR VOLUME 81 fl (80-97); MONOCYTES % (AUTO) 3.8 % (3-13); PLATELET COUNT 325 10^3/uL (150-450); RED BLOOD COUNT 5.05 10^6/uL (3.72-5.28); RED CELL DISTRIBUTION WIDTH 14.6 % (11.5-14.0); SEGMENTED NEUTROPHILS % (AUTO) 50.9 % (42-78); TOTAL CELLS COUNTED % (AUTO) 100 %; WHITE BLOOD COUNT 6.1 10^3/uL (4.0-10.5)
[2019-11-02 15:41] LABS: ALKALINE PHOSPHATASE 79 U/L (38-126); ANION GAP 5 (5-19); ASPARTATE AMINO TRANSFERASE 16 U/L (14-36); BILIRUBIN,TOTAL 0.3 mg/dL (0.2-1.3); BLOOD UREA NITROGEN 13 mg/dL (7-20); CARBON DIOXIDE 21 mmol/L (22-30); CHLORIDE 111 mmol/L (98-107); CREATINE KINASE 137 U/L (30-135); POTASSIUM 4.1 mmol/L (3.6-5.0); TOTAL PROTEIN 7.3 g/dL (6.3-8.2)
[2019-11-02 15:43] LABS: GLUCOSE 68 mg/dL (75-110)
[2019-11-02] MEDS ORDERED: DEXTROSE 5%-LACTATED RINGERS 1,000 ML IV ONE (16:01)
[2019-11-02 17:06] LABS: APPEARANCE,URINE SLIGHTLY-CLOUDY; BILIRUBIN,URINE NEGATIVE (NEGATIVE); COLOR,URINE YELLOW; GLUCOSE, URINE NEGATIVE (NEGATIVE); KETONES,URINE NEGATIVE (NEGATIVE); LEUKOCYTE ESTERASE,URINE NEGATIVE (NEGATIVE); NITRITE,URINE NEGATIVE (NEGATIVE); PROTEIN,URINE NEGATIVE (NEGATIVE); URINE SPECIFIC GRAVITY 1.021; UROBILINOGEN,URINE NEGATIVE mg/dL (<2.0)
--- NOTE | 2019-11-02 19:33 | RADIOLOGY REPORT (SQ) ---
EXAM DESCRIPTION: U/S ABDOMEN LIMITED W/O DOP IMAGES COMPLETED DATE/TIME: 11/02/2019 7:09 pm REASON FOR STUDY: Lipase 8,667 w/ nausea vomiting and diarrhea COMPARISON: None. TECHNIQUE: Dynamic and static grayscale images acquired of the abdomen and recorded on PACS. Charleyo brent selected color Doppler and spectral images recorded. LIMITATIONS: None. FINDINGS: PANCREAS: Poorly seen because of bowel gas and body habitus. LIVER: Hepatomegaly. Increased echogenicity. No masses. LIVER VASCULATURE: Normal directional flow of the main portal vein and hepatic veins. GALLBLADDER: Gallbladder is distended to to 10.5 x 4 cm. There are no gallstones. There is no wall thickening. ULTRASOUND-DETECTED HERNANDEZ'S SIGN: Negative. INTRAHEPATIC DUCTS AND COMMON DUCT: CBD and intrahepatic ducts normal caliber. No filling defects. AORTA: No aneurysm. The midportion of the aorta was poorly seen. RIGHT KIDNEY: Normal size 12 cm. Normal echogenicity. No solid or suspicious masses. No hydronephros is. No calcifications. PERITONEAL AND RIGHT PLEURAL SPACE: No ascites or effusions. OTHER: No other significant findings. IMPRESSION: Hepatomegaly. Hepatic steatosis. Distended gallbladder with no stones and no evidence of cholecystitis. TECHNICAL DOCUMENTATION: JOB ID: [id number] 2010 [employer]- All Rights Reserved Reading location - IP/workstation name: [email or web address]
[2019-11-02] MEDS ORDERED: LEVALBUTEROL HCL NEB 0.63 MG/3 ML AMPUL NEB PRN (20:28)
[2019-11-02] MEDS ORDERED: NICOTINE 21 MG/24 HR PATCH.TD24 TD PRN (20:33)
[2019-11-02] MEDS ORDERED: HYDRALAZINE HCL INJ/PF 20 MG/1 ML SDV IV PRN (20:33)
[2019-11-02] MEDS ORDERED: MORPHINE SULFATE 10 MG/ML INJ IV PRN ×4 (20:33→21:11)
[2019-11-02] MEDS ORDERED: ACETAMINOPHEN 650 MG SUPP.RECT PR PRN (20:33)
[2019-11-02] MEDS ORDERED: LORAZEPAM INJ 2 MG/1 ML VIAL IV PRN (20:33)
[2019-11-02] MEDS ORDERED: METOPROLOL TARTRATE PF/INJ 5 MG/5 ML SDV IV PRN (20:33)
[2019-11-02] MEDS: FAMOTIDINE INJ/PF 20 MG/2 ML SDV IV SCH (22:47)
[2019-11-02] MEDS: MORPHINE SULFATE 10 MG/ML INJ IV PRN (22:47)
[2019-11-02] MEDS: HEPARIN SOD (PORCINE) 5,000 UNIT/ML 1 ML VIAL SUBCUT SCH (22:48)
--- NOTE | 2019-11-02 23:02 | PDOC H&P ---
History of Present Illness Admission Date/PCP: 11/02/19 20:01 No local PCP Patient complains of: Abdominal pain History of Present Illness: MACKENZIE MCGEE is a 39 year old female who presented the emergency room with a one-day history of abdominal pain. She admits the sudden onset of genera lized, nonradiating, intermittent, severe abdominal colic/cramping pain beginning yesterday accompanied by nausea with numerous episodes of vomiting and associated with decreased oral intake and numerous watery diarrhea stools. She denies other associated or accompanying signs and symptoms. She admits prior similar episodes associated with Crohn's disease. She has not identified any aggravating or ameliorating factors for her abdominal pain. In the emergency room she was found to have an elevated lipase at 8667 with an abdominal ultrasound that showed a dilated gallbladder without stones or wall thickening. She was subsequently admitted to the hospital for further evaluation and treatme nt. Past Medical History Cardiac Medical History: Reports: Hypertension Denies: Atrial Fibrillation, Coronary Artery Disease, Myocardial Infarction, Hyperlipidema Pulmonary Medical History: Denies: Asthma, Chronic Obstructive Pulmonary Disease (COPD) EENT Medical History: Denies: Cataracts, Ears - Hearing aids Neurological Medical History: Denies: Hemorrhagic CVA, Ischemic CVA, Seizures Endocrine Medical History: Reports: Obesity Denies: Diabetes Mellitus Type 1, Diabetes Mellitus Type 2, Hyperthyroidism, Hypothyroidism Renal/ Medical History: Denies: Chronic Kidney Disease, Nephrolithiasis Malignancy Medical History: Reports: None GI Medical History: Reports: Crohn's Disease - With multiple bowel obstructions, Gastroesophageal Reflux Disease Denies: Cirrhosis, Hepatitis, Peptic Ulcer Disease, Ulcerative Colitis Musculoskeltal Medical History: Denies: Arthritis, Fibromyalgia Skin Medical History: Denies: Eczema, Psoriasis Psychiatric Medical History: Reports: Tobacco Dependency Denies: Alcohol Dependency, Depression, Substance Abuse Hematology: Reports: Anemia Denies: Bleeding Tendencies Infectious Medical History: Reports: None Past Surgical History Past Surgical History: Reports: Other - EGD and colonoscopy. Right hemicolectomy for Crohn's related stricture. Social History Information Source: Patient Lives with: Family Smoking Status: Current Every Day Smoker Electronic Cigarette use?: No Frequency of Alcohol Use: None Hx Recreational Drug Use: No Drugs: None Hx Prescription Drug Abuse: No - Advance Directive Resuscitation Status: Full Code Surrogate healthcare decision maker:: Shawnee Hobbs Family History Family History: DM, Hypertension, Malignancy - Breast cancer in a great aunt. Ovarian cancer in a cousin. Parental Family History Reviewed: Yes Children Family History Reviewed: No Sibling(s) Family History Reviewed.: Yes Medication/Allergy Home Medications: Amlodipine Besylate [Norvasc 5 mg Tablet] 5 mg PO DAILY 11/02/16 Ergocalciferol (Vitamin D2) [Vitamin D2] 50,000 unit PO ACEVEDO@1000 11/02/16 Hyoscyamine Sulfate [Symax] 0.125 mg PO Q6 #20 tab.rapdis 11/29/16 Sennosides [Senna Laxative] 8.6 mg PO BID #20 tablet 11/29/16 Allergies/Adverse Reactions: latex [Latex] Allergy (Verified 11/02/19 10:18) Review of Systems Constitutional: ABSENT: chills, fever(s) Eyes: ABSENT: visual disturbances, other - Eye pain Ears: ABSENT: hearing changes, other - Ear pain Nose, Mouth, and Throat: ABSENT: headache(s), sore throat Cardiovascular: ABSENT: chest pain, palpitations Respiratory: ABSENT: cough, dyspnea Gastrointestinal: PRESENT: as per HPI, abdominal pain, diarrhea, nausea, vomiting. ABSENT: constipation, hematemesis, melena Genitourinary: ABSENT: dysuria, hematuria Musculoskeletal: ABSENT: back pain, joint swelling Integumentary: ABSENT: pruritus, rash Neurological: ABSENT: confusion, convulsions, focal weakness, memory loss, syncope Psychiatric: ABSENT: anxiety, depression Endocrine: ABSENT: cold intolerance, heat intolerance Hematologic/Lymphatic: ABSENT: easy bleeding, easy bruising Allergic/Immunologic: ABSENT: seasonal rhinorrhea Physical Exam Vital Signs: Temp Pulse Resp BP Pulse Ox 98.5 F 87 16 139/90 H 99 11/02/19 18:39 11/02/19 18:39 11/02/19 18:39 11/02/19 18:39 11/02/19 18:39 Intake & Output 10/31/19 11/01/19 11/02/19 23:59 23:59 23:59 Intake Total 3000 Balance 3000 Weight 110.5 kg General appearance: PRESENT: cooperative, mild distress - Secondary to abdominal pain, obese Head exam: PRESENT: atraumatic, normocephalic Eye exam: PRESENT: conjunctiva pink. ABSENT: conjunctival injection, scleral icterus Ear exam: PRESENT: normal external ear exam. ABSENT: bleeding, drainage Mouth exam: PRESENT: dry mucosa, neck supple Neck exam: ABSENT: thyromegaly, tracheal deviation Respiratory exam: PRESENT: clear to auscultation gwendolyn, symmetrical, unlabored Cardiovascular exam: PRESENT: RRR. ABSENT: clicks, gallop, rubs Pulses: PRESENT: normal radial pulses, normal dorsalis pedis pul Vascular exam: PRESENT: normal capillary refill. ABSENT: pallor GI/Abdominal exam: PRESENT: normal bowel sounds, soft, tenderness - Moderate upper abdominal tenderness to palpation without localization Rectal exam: PRESENT: deferred Extremities exam: ABSENT: joint swelling, pedal edema Musculoskeletal exam: ABSENT: deformity, dislocation Neurological exam: PRESENT: alert, oriented to person, oriented to place, oriented to time, oriented to situation, CN II-XII grossly intact. ABSENT: mo tor sensory deficit Psychiatric exam: PRESENT: appropriate affect, normal mood Skin exam: PRESENT: dry, intact. ABSENT: jaundice, rash, urticaria Results Laboratory Results: 11/02/19 15:08 11/02/19 15:08 11/02/19 11/02/19 11/02/19 11:41 11:41 15:08 WBC 6.1 RBC 5.05 Hgb 13.1 Hct 40.9 MCV 81 MCH 25.9 L MCHC 32.0 RDW 14.6 H Plt Count 325 Seg Neutrophils % 50.9 Sodium Cancelled Potassium Cancelled Chloride Cancelled Carbon Dioxide Cancelled Anion Gap Cancelled BUN Cancelled Creatinine Cancelled Est GFR ( Amer) Cancelled Est GFR (Non-Af Amer) Cancelled Glucose Cancelled Calcium Cancelled Total Bilirubin Cancelled AST Cancelled Alkaline Phosphatase Cancelled C-Reactive Protein Total Protein Cancelled Albumin Cancelled Triglycerides Lipase Cancelled Serum HCG, Qual Cancelled Urine Color Urine Appearance Urine pH Ur Specific [place] Urine Protein Urine Glucose (UA) Urine Ketones Urine Blood Urine Nitrite Ur Leukocyte Esterase Urine WBC (Auto) Urine RBC (Auto) 11/02/19 11/02/19 11/02/19 15:08 15:08 15:08 WBC RBC Hgb Hct MCV MCH MCHC RDW Plt Count Seg Neutrophils % Sodium 137.1 Potassium 4.1 Chloride 111 H Carbon Dioxide 21 L Anion Gap 5 BUN 13 Creatinine 0.87 Est GFR ( Amer) > 60 Est GFR (Non-Af Amer) Glucose 68 L Calcium 9.0 Total Bilirubin 0.3 AST 16 Alkaline Phosphatase 79 C-Reactive Protein 21.7 H Total Protein 7.3 Albumin 4.0 Triglycerides Lipase 8667.1 H Serum HCG, Qual NEGATIVE Urine Color Urine Appearance Urine pH Ur Specific [place] Urine Protein Urine Glucose (UA) Urine Ketones Urine Blood Urine Nitrite Ur Leukocyte Esterase Urine WBC (Auto) Urine RBC (Auto) 11/02/19 11/02/19 15:08 16:30 WBC RBC Hgb Hct MCV MCH MCHC RDW Plt Count Seg Neutrophils % Sodium Potassium Chloride Carbon Dioxide Anion Gap BUN Creatinine Est GFR ( Amer) Est GFR (Non-Af Amer) Glucose Calcium Total Bilirubin AST Alkaline Phosphatase C-Reactive Protein Total Protein Albumin Triglycerides 160 H Lipase Serum HCG, Qual Urine Color YELLOW Urine Appearance SLIGHTLY-CLOUDY Urine pH 5.0 Ur Specific [place] 1.021 Urine Protein NEGATIVE Urine Glucose (UA) NEGATIVE Urine Ketones NEGATIVE Urine Blood LARGE H Urine Nitrite NEGATIVE Ur Leukocyte Esterase NEGATIVE Urine WBC (Auto) 6 Urine RBC (Auto) 42 11/02/19 11/02/19 11:41 15:08 Creatine Kinase Cancelled 137 H Impressions: Acute Abdomen Series 11/02/19 11:17 IMPRESSION: Nonspecific, nonobstructed bowel gas pattern. Chain sutures are seen in the right lower quadrant. Abdomen Ultrasound 11/02/19 16:03 IMPRESSION: Hepatomegaly. Hepatic steatosis. Distended gallbladder with no stones and no evidence of cholecystitis. Assessment and Plan - Diagnosis (1) Acute pancreatitis Qualifiers: Pancreatitis type: unspecified pancreatitis type Acute pancreatitis complication: no infection or necrosis Qualified Code(s): K85.90 - Acute pancreatitis without necrosis or infection, unspecified Is this a current diagnosis for this admission?: Yes (2) Abdominal pain Qualifiers: Abdominal location: generalized Qualified Code(s): R10.84 - Generalized abdominal pain Is this a current diagnosis for this admission?: Yes (3) Nausea, vomiting and diarrhea Is this a current diagnosis for this admission?: Yes (4) Crohns disease Qualifiers: Gastrointestinal tract location: unspecified location Digestive disease complication type: unspecified complication Qualified Code(s): K50.919 - Crohn's disease, unspecified, with unspecified complications Is this a current diagnosis for this admission?: Yes (5) Hypertension Qualifiers: Hypertension type: essential hypertension Qualified Code(s): I10 - Essential (primary) hypertension Is this a current diagnosis for this admission?: Yes (6) Tobacco use disorder, continuous Is this a current diagnosis for this admission?: Yes (7) Obesity Qualifiers: Obesity type: unspecified obesity type Obesity classification: adult class 2 (BMI 35 - 39.9) Serious obesity comorbidity presence: with serious comorbidity Is this a current diagnosis for this admission?: Yes - Plan Summary Summary: Patient will be admitted to the medical floor where she will receive routine supportive and symptomatic cares. She will receive IV fluids utilizing lactated Ringer's solution at 250 mL/h. She will receive morphine sulfate 2 to 4 mg IV every 2 hours as needed for pain control. She will use Ativan 1 mg IV every 4 hours as needed for anxiety or restlessness. Hypertension will be controlled utilizing IV hydralazine and/or metoprolol as needed to maintain a blood pressure less than 160/100. She will receive Phenergan 12.5 mg IV every 4 hours as needed for control of nausea and vomiting. She will be n.p.o. initially with advancement to a clear liquid diet as tolerated in the morning. A lipid profile, thyroid profile and a CT of the abdomen and pelvis without contrast will be obtained. CBCs, metabolic profiles, magnesium levels and other lab oratory and/or radiographic evaluations will be obtained as appropriate. Smoking cessation is advised and counseled briefly at the bedside. A nicotine replacement patch is available for the patient's use, if desired. - Time Time Spent with patient: 15-24 minutes Smoking Cessation Education: 3 to 10 minutes Medications reviewed and adjusted accordingly: Yes Anticipated discharge: Home - Inpatient Certification Based on my medical assessment, after consideration of the patient's comorbidities, presenting symptoms, or acuity I expect that the services needed warrant INPATIENT care.: Yes I certify that my determination is in accordance with my understanding of Medicare's requirements for reasonable and necessary INPATIENT services [42 CFR 412.3e].: Yes Medical Necessity: Significant Comorbidiites Make Outpatient Treatment Too Risky, Need Close Monitoring Due to Risk of Patient Decompensation, Need For IV Fluids, Need for Pain Control, Risk of Complication if Not Cared For in Hospital
[2019-11-02] MEDS: DEXTROSE 5%-LACTATED RINGERS 1,000 ML IV PRN (23:05)
[2019-11-02] MEDS: PROMETHAZINE HCL INJ 25 MG/1 ML VIAL IV PRN (23:13)
[2019-11-03] MEDS: MORPHINE SULFATE 10 MG/ML INJ IV PRN ×5 (00:54→22:46)
[2019-11-03] MEDS: PROMETHAZINE HCL INJ 25 MG/1 ML VIAL IV PRN ×3 (04:20→17:11)
[2019-11-03] MEDS: HEPARIN SOD (PORCINE) 5,000 UNIT/ML 1 ML VIAL SUBCUT SCH ×3 (06:39→22:47)
[2019-11-03 06:46] LABS: HEMATOCRIT 35.1 % (36.0-47.0); HEMOGLOBIN 11.4 g/dL (12.0-15.5); MEAN CORPUSCULAR HEMOGLOBIN 25.9 pg (27.0-33.4); MEAN CORPUSCULAR HGB CONC 32.3 g/dL (32.0-36.0); MEAN CORPUSCULAR VOLUME 80 fl (80-97); PLATELET COUNT 260 10^3/uL (150-450); RED BLOOD COUNT 4.39 10^6/uL (3.72-5.28); RED CELL DISTRIBUTION WIDTH 14.2 % (11.5-14.0); WHITE BLOOD COUNT 4.5 10^3/uL (4.0-10.5)
[2019-11-03 07:03] LABS: ALKALINE PHOSPHATASE 59 U/L (38-126); AMYLASE 183 U/L (30-110); ASPARTATE AMINO TRANSFERASE 14 U/L (14-36); BILIRUBIN,TOTAL 0.2 mg/dL (0.2-1.3); BLOOD UREA NITROGEN 10 mg/dL (7-20); CALCIUM 8.4 mg/dL (8.4-10.2); CHOLESTEROL 96.98 mg/dL (0-200); GLUCOSE 71 mg/dL (75-110); POTASSIUM 3.9 mmol/L (3.6-5.0); TOTAL PROTEIN 5.9 g/dL (6.3-8.2); TRIGLYCERIDES 123 mg/dL (<150)
[2019-11-03 07:08] LABS: CARBON DIOXIDE 25 mmol/L (22-30); CHLORIDE 109 mmol/L (98-107)
[2019-11-03 07:11] LABS: ANION GAP 2 (5-19)
[2019-11-03 07:13] LABS: DIRECT LDL 47 mg/dL (<100)
[2019-11-03 07:18] LABS: FREE T3 4.17 pg/mL (2.77-5.27)
[2019-11-03 07:31] LABS: THYROID STIMULATING HORMONE 2.77 uIU/mL (0.47-4.68)
--- NOTE | 2019-11-03 08:52 | RADIOLOGY REPORT (SQ) ---
EXAM DESCRIPTION: CT ABD/PELVIS NO ORAL OR IV IMAGES COMPLETED DATE/TIME: 11/03/2019 8:28 am REASON FOR STUDY: Abdominal pain, elevated lipase COMPARISON: CT of the abdomen and pelvis with contrast from 11/11/2019 and ultrasound of the abdomen from 11/02/2019 TECHNIQUE: CT scan of the abdomen and pelvis performed without intravenous or oral contrast. Images reviewed with lung, soft tissue, and bone windows. Reconstructed coronal and sagittal MPR images revi ewed. All images stored on PACS. All CT scanners at this facility use dose modulation, iterative reconstruction, and/or weight based d osing when appropriate to reduce radiation dose to as low as reasonably achievable (ALARA). [facility]: Dose Right [facility]: CareDose [facility]: Dose Right [facility]: Teradose 4D [facility]: [employer] RADIATION DOSE: CT Rad equipment meets quality standard of care and radiation dose reduction techniq ues were employed. CTDIvol: 24.9 mGy. DLP: 1369 mGy-cm. LIMITATIONS: None. FINDINGS: LOWER CHEST: No acute findings. NON-CONTRASTED LIVER, SPLEEN, ADRENALS: Evaluation is limited due to the absence of intravenous contr ast. There is no evidence of hepatic steatosis. The spleen is borderline enlarged and it measures 1 2.6 cm in AP diameter. There is no adrenal mass. PANCREAS: No acute gross abnormality of the pancreas. GALLBLADDER: No abnormality that is apparent on CT. RIGHT KIDNEY AND URETER: Evaluation is limited due to the absence of intravenous contrast. There is no hydronephrosis, nephrolithiasis, hydroureter or ureterolithiasis. LEFT KIDNEY AND URETER: Evaluation is limited due to the absence of intravenous contrast. There is n o hydronephrosis, nephrolithiasis, hydroureter or ureterolithiasis. AORTA AND RETROPERITONEUM: No aneurysm of the abdominal aorta. No retroperitoneal adenopathy, hemorr tanvi or mass. BOWEL AND PERITONEAL CAVITY: Postoperative findings in the right lower quadrant (near the ileocecal j unction) indicative of prior bowel resection and anastomosis. The wall of the bowel proximal to the anastomotic staple line is thickened and there is mild associated engorgement of the vasa recta. The re is no associated obstruction, pneumatosis, free intraperitoneal fluid, or extraluminal abscess. There are prominent mesenteric lymph nodes near the root of the mesenteries that measure up to 13 mm in short axis diameter. APPENDIX: Unable to visualize the appendix - correlate for surgical resection. PELVIS, BLADDER, AND ABDOMINAL WALL:Dermoid cyst in the right adnexum that measures 2.3 x 1.9 cm. Th ere is a small amount of physiologic free fluid in the cul de sac. The urinary bladder is distended and normal in appearance. There is no abdominal wall mass or hernia. BONES: No acute findings. OTHER: No other finding. IMPRESSION: 1. Postoperative findings in the right lower quadrant (near the ileocecal junction) kareem cative of prior bowel resection and anastomosis. The wall of the bowel proximal to the anastomotic s taple line is thickened and there is mild associated engorgement of the vasa recta. Clinical correla tion for an infectious, inflammatory or ischemic enteritis is recommended . 2. Dermoid cyst in the right adnexum. 3. Physiologic free fluid in the cul de sac. COMMENT: Quality ID # [id number]: Final reports with documentation of one or more dose reduction techniques (e.g., Automated exposure control, adjustment of the mA and/or kV according to patient size, use of iterative reconstruction technique) TECHNICAL DOCUMENTATION: JOB ID: [id number] 2010 [employer]- All Rights Reserved Reading location - IP/workstation name: [email or web address]
[2019-11-03] MEDS: FAMOTIDINE INJ/PF 20 MG/2 ML SDV IV SCH ×2 (10:32→22:47)
--- NOTE | 2019-11-03 13:53 | PDOC PROGRESS REPORT ---
Subjective Progress Note for:: 11/03/19 Subjective:: Patient states she has had an episode of diarrhea in the past 24 hours. Still having some nausea but no vomiting this morning. Has not had much of an appetite. Denies any bloody stools. Denies any prior history of ovarian cyst. Reason For Visit: ACUTE PANCREATITIS Physical Exam Vital Signs: Temp Pulse Resp BP Pulse Ox 98.1 F 88 16 144/93 H 100 11/03/19 11:33 11/03/19 11:33 11/03/19 11:33 11/03/19 11:33 11/03/19 11:33 Intake & Output 11/02/19 11/03/19 11/04/19 06:59 06:59 06:59 Intake Total 4000 Balance 4000 Weight 112.4 kg General appearance: PRESENT: no acute distress, cooperative Neck exam: ABSENT: JVD Respiratory exam: PRESENT: clear to auscultation gwendolyn, symmetrical, unlabored. ABSENT: tachypnea Cardiovascular exam: PRESENT: RRR, +S1, +S2. ABSENT: tachycardia GI/Abdominal exam: PRESENT: soft, tenderness. ABSENT: distended, firm, guarding, rebound, rigid Neurological exam: PRESENT: alert, awake, oriented to person, oriented to place, oriented to time, oriented to situation Skin exam: ABSENT: jaundice Results Laboratory Results: 11/03/19 06:10 11/03/19 06:10 11/02/19 11/02/19 11/02/19 15:08 15:08 15:08 WBC 6.1 RBC 5.05 Hgb 13.1 Hct 40.9 MCV 81 MCH 25.9 L MCHC 32.0 RDW 14.6 H Plt Count 325 Seg Neutrophils % 50.9 Sodium 137.1 Potassium 4.1 Chloride 111 H Carbon Dioxide 21 L Anion Gap 5 BUN 13 Creatinine 0.87 Est GFR ( Amer) > 60 Glucose 68 L Calcium 9.0 Magnesium Total Bilirubin 0.3 AST 16 Alkaline Phosphatase 79 C-Reactive Protein Total Protein 7.3 Albumin 4.0 Triglycerides Cholesterol LDL Cholesterol Direct VLDL Cholesterol HDL Cholesterol Amylase Lipase 8667.1 H TSH Free T3 pg/mL Serum HCG, Qual NEGATIVE Urine Color Urine Appearance Urine pH Ur Specific [place] Urine Protein Urine Glucose (UA) Urine Ketones Urine Blood Urine Nitrite Ur Leukocyte Esterase Urine WBC (Auto) Urine RBC (Auto) 11/02/19 11/02/1920 15:08 15:08 16:30 WBC RBC Hgb Hct MCV MCH MCHC RDW Plt Count Seg Neutrophils % Sodium Potassium Chloride Carbon Dioxide Anion Gap BUN Creatinine Est GFR ( Amer) Glucose Calcium Magnesium Total Bilirubin AST Alkaline Phosphatase C-Reactive Protein 21.7 H Total Protein Albumin Triglycerides 160 H Cholesterol LDL Cholesterol Direct VLDL Cholesterol HDL Cholesterol Amylase Lipase TSH Free T3 pg/mL Serum HCG, Qual Urine Color YELLOW Urine Appearance SLIGHTLY-CLOUDY Urine pH 5.0 Ur Specific [place] 1.021 Urine Protein NEGATIVE Urine Glucose (UA) NEGATIVE Urine Ketones NEGATIVE Urine Blood LARGE H Urine Nitrite NEGATIVE Ur Leukocyte Esterase NEGATIVE Urine WBC (Auto) 6 Urine RBC (Auto) 42 11/03/19 11/03/19 11/03/19 06:10 06:10 06:10 WBC 4.5 RBC 4.39 Hgb 11.4 L Hct 35.1 L MCV 80 MCH 25.9 L MCHC 32.3 RDW 14.2 H Plt Count 260 Seg Neutrophils % Sodium 136.4 L Potassium 3.9 Chloride 109 H Carbon Dioxide 25 Anion Gap 2 L BUN 10 Creatinine 0.84 Est GFR ( Amer) > 60 Glucose 71 L Calcium 8.4 Magnesium 1.6 Total Bilirubin 0.2 AST 14 Alkaline Phosphatase 59 C-Reactive Protein Total Protein 5.9 L Albumin 3.0 L Triglycerides 123 Cholesterol 96.98 LDL Cholesterol Direct 47 VLDL Cholesterol 25.0 HDL Cholesterol 35 L Amylase 183 H Lipase 579.2 H TSH 2.77 Free T3 pg/mL 4.17 Serum HCG, Qual Urine Color Urine Appearance Urine pH Ur Specific [place] Urine Protein Urine Glucose (UA) Urine Ketones Urine Blood Urine Nitrite Ur Leukocyte Esterase Urine WBC (Auto) Urine RBC (Auto) 11/02/19 11/02/19 11:41 15:08 Creatine Kinase Cancelled 137 H Impressions: Acute Abdomen Series 11/02/19 11:17 IMPRESSION: Nonspecific, nonobstructed bowel gas pattern. Chain sutures are seen in the right lower quadrant. Abdomen Ultrasound 11/02/19 16:03 IMPRESSION: Hepatomegaly. Hepatic steatosis. Distended gallbladder with no stones and no evidence of cholecystitis. Abdomen/Pelvis CT 11/02/19 20:36 IMPRESSION: 1. Postoperative findings in the right lower quadrant (near the ileocecal junction) indicative of prior bowel resection and anastomosis. The wall of the bowel proximal to the anastomotic staple line is thickened and there is mild associated engorgement of the vasa recta. Clinical correlation for an infectious, inflammatory or ischemic enteritis is recommended . 2. Dermoid cyst in the right adnexum. 3. Physiologic free fluid in the cul de sac. Assessment and Plan - Diagnosis (1) Acute pancreatitis Qualifiers: Pancreatitis type: unspecified pancreatitis type Acute pancreatitis complication: no infection or necrosis Qualified Code(s): K85.90 - Acute pancreatitis without necrosis or infection, unspecified Is this a current diagnosis for this admission?: Yes Plan: Admitted for treatment of acute pancreatitis with lipase > 8600. Abdominal ult rasound shows no common bile duct dilation or stones but reveals some steatosis. Abdominal CT however shows normal pancreas. Patient is currently receiving aggressive IV fluids and IV morphine for pain control. We will continue to monitor and continue clear liquids for now with plan to advance diet tomorrow. (2) Abdominal pain Qualifiers: Abdominal location: generalized Qualified Code(s): R10.84 - Generalized abdominal pain Is this a current diagnosis for this admission?: Yes Plan: Abdominal pain is mostly right lower quadrant. Abdominal CT scan without contrast shows bowel wall thickening and some mild signs of inflammation around patient's anastomosis site from her prior bowel resection. I have consulted surgery and discussed with Dr. Parrish was looked at image to see if any endoscopy is required for further evaluation. He recommends that nothing surgi lesli needs to be done at this point. It is also possible that patient's abdominal pain may be secondary to a mild Crohn's flare more so than acute pancreatitis especially given that patient was having multiple bouts of diarrhea up to 15 episodes a day in the past few days to seems to be resolving. C-reactive protein is high but ESR is normal. We will continue supportive care and antinausea medication for nausea or vomiting. Her diarrhea is currently resolved. Pain control as needed. Place o n prednisone 30 mg daily. (3) Dermoid cyst of right ovary Is this a current diagnosis for this admission?: Yes Plan: 1.9x2.3cm dermoid cyst in the right adnexum noted incidentally on CT. She currently has not established care with a school janitor. I have consulted [facility] for evaluation. (4) Crohns disease Qualifiers: Gastrointestinal tract location: unspecified location Digestive disease complication type: unspecified complication Qualified Code(s): K50.919 - Crohn's disease, unspecified, with unspecified complications Is this a current diagnosis for this admission?: Yes Plan: History of Crohn's disease status post bowel resection. Currently, not on any immunomodulators as outpatient. Plan as above. Outpatient f/u. (5) Obesity Qualifiers: Obesity type: unspecified obesity type Obesity classification: adult class 2 (BMI 35 - 39.9) Serious obesity comorbidity presence: with serious comorbidity Is this a current diagnosis for this admission?: Yes Plan: Dietary modification (6) Elevated blood pressure reading Is this a current diagnosis for this admission?: Yes Plan: May be secondary to pain. Will monitor. - Time Time Spent with patient: 15-24 minutes
[2019-11-03] MEDS ORDERED: ONDANSETRON HCL INJ/PF 4 MG/2 ML SDV IV PRN (13:55)
[2019-11-03] MEDS: PREDNISONE 20 MG TABLET PO SCH (14:53)
--- NOTE | 2019-11-03 15:57 | PDOC CONSULTATION ---
Consultation Consult Date: 11/03/19 Provider Consulted: COLEEN SRINIVASAN History of Present Illness Admission Date/PCP: 11/02/19 20:01 History of Present Illness: MACKENZIE MCGEE is a 39 year old female G1, P1 with LMP 1 week ago and on no control. Patient admitted with abdominal pain and noted on a CT scan to have a small dermoid cyst. Patient gives no history of pelvic pain or menstrual abnormalities. The dermoid cyst appears to be benign in appearance. We discussed dermoid and the probability this is been present for her entire life. It is small and not causing her any problems at present. At one point we were removing all dermoids because of the small malignant potential however we may be able to follow this with serial ultrasounds. I have given patient her option and when she discharged from this hospital she will call her office for follow- up appointment at which time we will revisit the situation and treat her appropriately. Past Medical History Cardiac Medical History: Reports: Hypertension Denies: Atrial Fibrillation, Coronary Artery Disease, Myocardial Infarction, Hyperlipidema Pulmonary Medical History: Denies: Asthma, Chronic Obstructive Pulmonary Disease (COPD) EENT Medical History: Denies: Cataracts, Ears - Hearing aids Neurological Medical History: Denies: Hemorrhagic CVA, Ischemic CVA, Seizures Endocrine Medical History: Reports: Obesity Denies: Diabetes Mellitus Type 1, Diabetes Mellitus Type 2, Hyperthyroidism, Hypothyroidism Renal/ Medical History: Denies: Chronic Kidney Disease, Nephrolithiasis Malignancy Medical History: Reports: None GI Medical History: Reports: Crohn's Disease - With multiple bowel obstructions, Gastroesophageal Reflux Disease Denies: Cirrhosis, Hepatitis, Peptic Ulcer Disease, Ulcerative Colitis Musculoskeltal Medical History: Denies: Arthritis, Fibromyalgia Skin Medical History: Denies: Eczema, Psoriasis Psychiatric Medical History: Reports: Tobacco Dependency Denies: Alcohol Dependency, Depression, Substance Abuse Infectious Medical History: Reports: None Social History Lives with: Family Smoking Status: Current Every Day Smoker Cigarettes Packs Per Day: 1 Electronic Cigarette use?: No Number of Years Smokin Frequency of Alcohol Use: None Hx Recreational Drug Use: No Drugs: None Hx Prescription Drug Abuse: No - Advance Directive Resuscitation Status: Full Code Family History Family History: None, DM, Hypertension, Malignancy - Breast cancer in a great aunt. Ovarian cancer in a cousin. Parental Family History Reviewed: No Children Family History Reviewed: No Sibling(s) Family History Reviewed.: No Medication/Allergy Home Medications: No Home Medications 11/03/19 Allergies/Adverse Reactions: latex [Latex] Adverse Reaction (Mild, Verified 11/03/19 10:44) ITCHING Physical Exam - Physical Exam Vital Signs: Temp Pulse Resp BP Pulse Ox 98.1 F 88 16 144/93 H 100 11/03/19 11:33 11/03/19 11:33 11/03/19 11:33 11/03/19 11:33 11/03/19 11:33 Intake & Output 11/02/19 11/03/19 11/04/19 06:59 06:59 06:59 Intake Total 4000 360 Balance 4000 360 Weight 112.4 kg Result Laboratory Results: 11/03/19 06:10 11/03/19 06:10 11/02/19 11/02/19 11/02/19 15:08 15:08 16:30 WBC RBC Hgb Hct MCV MCH MCHC RDW Plt Count Sodium Potassium Chloride Carbon Dioxide Anion Gap BUN Creatinine Est GFR ( Amer) Glucose Calcium Magnesium Total Bilirubin AST Alkaline Phosphatase Total Protein Albumin Triglycerides 160 H Cholesterol LDL Cholesterol Direct VLDL Cholesterol HDL Cholesterol Amylase Lipase 8667.1 H TSH Free T3 pg/mL Urine Color YELLOW Urine Appearance SLIGHTLY-CLOUDY Urine pH 5.0 Ur Specific [place] 1.021 Urine Protein NEGATIVE Urine Glucose (UA) NEGATIVE Urine Ketones NEGATIVE Urine Blood LARGE H Urine Nitrite NEGATIVE Ur Leukocyte Esterase NEGATIVE Urine WBC (Auto) 6 Urine RBC (Auto) 42 11/03/19 11/03/19 11/03/19 06:10 06:10 06:10 WBC 4.5 RBC 4.39 Hgb 11.4 L Hct 35.1 L MCV 80 MCH 25.9 L MCHC 32.3 RDW 14.2 H Plt Count 260 Sodium 136.4 L Potassium 3.9 Chloride 109 H Carbon Dioxide 25 Anion Gap 2 L BUN 10 Creatinine 0.84 Est GFR ( Amer) > 60 Glucose 71 L Calcium 8.4 Magnesium 1.6 Total Bilirubin 0.2 AST 14 Alkaline Phosphatase 59 Total Protein 5.9 L Albumin 3.0 L Triglycerides 123 Cholesterol 96.98 LDL Cholesterol Direct 47 VLDL Cholesterol 25.0 HDL Cholesterol 35 L Amylase 183 H Lipase 579.2 H TSH 2.77 Free T3 pg/mL 4.17 Urine Color Urine Appearance Urine pH Ur Specific [place] Urine Protein Urine Glucose (UA) Urine Ketones Urine Blood Urine Nitrite Ur Leukocyte Esterase Urine WBC (Auto) Urine RBC (Auto) 11/02/19 11/02/19 11:41 15:08 Creatine Kinase Cancelled 137 H Impressions: Acute Abdomen Series 11/02/19 11:17 IMPRESSION: Nonspecific, nonobstructed bowel gas pattern. Chain sutures are seen in the right lower quadrant. Abdomen Ultrasound 11/02/19 16:03 IMPRESSION: Hepatomegaly. Hepatic steatosis. Distended gallbladder with no stones and no evidence of cholecystitis. Abdomen/Pelvis CT 11/02/19 20:36 IMPRESSION: 1. Postoperative findings in the right lower quadrant (near the ileocecal junction) indicative of prior bowel resection and anastomosis. The wall of the bowel proximal to the anastomotic staple line is thickened and there is mild associated engorgement of the vasa recta. Clinical correlation for an infectious, inflammatory or ischemic enteritis is recommended . 2. Dermoid cyst in the right adnexum. 3. Physiologic free fluid in the cul de sac. Assessment & Plan - Plan Summary Plan Summary: Plan is to see the patient after hospitalization in our office. Go over the options again whether we surgically remove this or follow it with ultrasounds. The patient has been advised of the plan and understands and accepts the plan.
--- NOTE | 2019-11-03 16:22 | PDOC CONSULTATION ---
Consultation Consult Date: 11/03/19 Attending physician:: MILANA MCKNIGHT Provider Consulted: THIERRY LUCIANO Consult reason:: Right lower quadrant pain History of Present Illness Admission Date/PCP: 11/02/19 20:01 History of Present Illness: MACKENZIE MCGEE is a 39 year old female Presents emergency department complaining of a several day history of crampy abdominal pain, bloating, nausea, and diarrhea. Patient has known history of Crohn's disease, currently on no immune modulators. 3 years status post ileocecal ectomy in [place] for Crohn stricture. She is hospitalized now for failure to thrive, low-grade pancreatitis and CT scan findings consistent with an inflamed distal ileum. Surgery was consulted for opinion regarding management. Patient does not have a urologist at this time. She has been on Remicade, Imuran and some other anti-inflammatory agent. She is now being started on steroids. She does feel some better since admission, IV fluid hydration. Past Medical History Cardiac Medical History: Reports: Hypertension Denies: Atrial Fibrillation, Coronary Artery Disease, Myocardial Infarction, Hyperlipidema Pulmonary Medical History: Denies: Asthma, Chronic Obstructive Pulmonary Disease (COPD) EENT Medical History: Denies: Cataracts, Ears - Hearing aids Neurological Medical History: Denies: Hemorrhagic CVA, Ischemic CVA, Seizures Endocrine Medical History: Reports: Obesity Denies: Diabetes Mellitus Type 1, Diabetes Mellitus Type 2, Hyperthyroidism, Hypothyroidism Renal/ Medical History: Denies: Chronic Kidney Disease, Nephrolithiasis Malignancy Medical History: Reports: None GI Medical History: Reports: Crohn's Disease - With multiple bowel obstructions, Gastroesophageal Reflux Disease Denies: Cirrhosis, Hepatitis, Peptic Ulcer Disease, Ulcerative Colitis Musculoskeltal Medical History: Denies: Arthritis, Fibromyalgia Skin Medical History: Denies: Eczema, Psoriasis Psychiatric Medical History: Reports: Tobacco Dependency Denies: Alcohol Dependency, Depression, Substance Abuse Hematology: Reports: Anemia Denies: Bleeding Tendencies Infectious Medical History: Reports: None Past Surgical History Past Surgical History: Cholecystectomy, ileocecal ectomy Past Surgical History: Reports: Cholecystectomy - Right Colon Resection, Other - EGD and colonoscopy. Right hemicolectomy for Crohn's related stricture. Social History Information Source: Patient Lives with: Family Smoking Status: Current Every Day Smoker Cigarettes Packs Per Day: 1 Electronic Cigarette use?: No Number of Years Smokin Frequency of Alcohol Use: None Hx Recreational Drug Use: No Drugs: None Hx Prescription Drug Abuse: No - Advance Directive Resuscitation Status: Full Code Family History Family History: DM, Hypertension, Malignancy - Breast cancer in a great aunt. Ovarian cancer in a cousin. Parental Family History Reviewed: No Children Family History Reviewed: No Sibling(s) Family History Reviewed.: No Medication/Allergy Home Medications: No Home Medications 11/03/19 Allergies/Adverse Reactions: latex [Latex] Adverse Reaction (Mild, Verified 11/03/19 10:44) ITCHING Review of Systems Constitutional: PRESENT: as per HPI Eyes: ABSENT: visual disturbances Ears: ABSENT: hearing changes Cardiovascular: ABSENT: chest pain, dyspnea on exertion, edema, orthropnea, palpitations Respiratory: ABSENT: cough, hemoptysis Gastrointestinal: PRESENT: as per HPI Integumentary: ABSENT: rash, wounds Neurological: ABSENT: abnormal gait, abnormal speech, confusion, dizziness, focal weakness, syncope Physical Exam Vital Signs: Temp Pulse Resp BP Pulse Ox 98.1 F 88 16 144/93 H 100 11/03/19 11:33 11/03/19 11:33 11/03/19 11:33 11/03/19 11:33 11/03/19 11:33 Intake & Output 11/02/19 11/03/19 11/04/19 06:59 06:59 06:59 Intake Total 4000 360 Balance 4000 360 Weight 112.4 kg General appearance: PRESENT: no acute distress Head exam: PRESENT: normocephalic Eye exam: PRESENT: EOMI Mouth exam: PRESENT: dry mucosa Neck exam: PRESENT: full ROM Respiratory exam: PRESENT: clear to auscultation gwendolyn Cardiovascular exam: PRESENT: RRR Pulses: PRESENT: normal carotid pulses, normal radial pulses GI/Abdominal exam: PRESENT: soft - Minimally tender right lower quadrant no peritoneal signs minimal guarding. No masses Rectal exam: PRESENT: deferred Musculoskeletal exam: PRESENT: full ROM Neurological exam: PRESENT: oriented to person, oriented to place, oriented to time, oriented to situation Skin exam: PRESENT: dry Results Laboratory Results: 11/03/19 06:10 11/03/19 06:10 11/02/19 11/02/19 11/03/19 15:08 16:30 06:10 WBC 4.5 RBC 4.39 Hgb 11.4 L Hct 35.1 L MCV 80 MCH 25.9 L MCHC 32.3 RDW 14.2 H Plt Count 260 Sodium Potassium Chloride Carbon Dioxide Anion Gap BUN Creatinine Est GFR ( Amer) Glucose Calcium Magnesium Total Bilirubin AST Alkaline Phosphatase Total Protein Albumin Triglycerides 160 H Cholesterol LDL Cholesterol Direct VLDL Cholesterol HDL Cholesterol Amylase Lipase TSH Free T3 pg/mL Urine Color YELLOW Urine Appearance SLIGHTLY-CLOUDY Urine pH 5.0 Ur Specific [place] 1.021 Urine Protein NEGATIVE Urine Glucose (UA) NEGATIVE Urine Ketones NEGATIVE Urine Blood LARGE H Urine Nitrite NEGATIVE Ur Leukocyte Esterase NEGATIVE Urine WBC (Auto) 6 Urine RBC (Auto) 42 11/03/19 11/03/19 06:10 06:10 WBC RBC Hgb Hct MCV MCH MCHC RDW Plt Count Sodium 136.4 L Potassium 3.9 Chloride 109 H Carbon Dioxide 25 Anion Gap 2 L BUN 10 Creatinine 0.84 Est GFR ( Amer) > 60 Glucose 71 L Calcium 8.4 Magnesium 1.6 Total Bilirubin 0.2 AST 14 Alkaline Phosphatase 59 Total Protein 5.9 L Albumin 3.0 L Triglycerides 123 Cholesterol 96.98 LDL Cholesterol Direct 47 VLDL Cholesterol 25.0 HDL Cholesterol 35 L Amylase 183 H Lipase 579.2 H TSH 2.77 Free T3 pg/mL 4.17 Urine Color Urine Appearance Urine pH Ur Specific [place] Urine Protein Urine Glucose (UA) Urine Ketones Urine Blood Urine Nitrite Ur Leukocyte Esterase Urine WBC (Auto) Urine RBC (Auto) 11/02/19 11/02/19 11:41 15:08 Creatine Kinase Cancelled 137 H Impressions: Acute Abdomen Series 11/02/19 11:17 IMPRESSION: Nonspecific, nonobstructed bowel gas pattern. Chain sutures are seen in the right lower quadrant. Abdomen Ultrasound 11/02/19 16:03 IMPRESSION: Hepatomegaly. Hepatic steatosis. Distended gallbladder with no stones and no evidence of cholecystitis. Abdomen/Pelvis CT 11/02/19 20:36 IMPRESSION: 1. Postoperative findings in the right lower quadrant (near the ileocecal junction) indicative of prior bowel resection and anastomosis. The wall of the bowel proximal to the anastomotic staple line is thickened and there is mild associated engorgement of the vasa recta. Clinical correlation for an infectious, inflammatory or ischemic enteritis is recommended . 2. Dermoid cyst in the right adnexum. 3. Physiologic free fluid in the cul de sac. Assessment & Plan - Diagnosis (1) Crohns disease Qualifiers: Gastrointestinal tract location: unspecified location Digestive disease complication type: unspecified complication Qualified Code(s): K50.919 - Crohn's disease, unspecified, with unspecified complications Is this a current diagnosis for this admission?: Yes Plan: Impression: Low-grade flareup of Crohn's ileitis and patient 3 years out from ileocecal ectomy for Crohn stricture; off disease modifying agents. No evidence of acute abdomen, intra-abdominal fluid collection obstruction etc. CT scan imaging limited due to absence of oral and IV contrast. Recommendations: I have spoken with Dr. Mcknight; patient does not need surgical intervention at this time. Although the CT scan is limited due to absence of oral contrast, there does not appear to be any obstruction secondary to the terminal ileal wall thickening. The anastomosis between the terminal ileum and the right colon appears patent. Furthermore there is no evidence of abdominal fluid, abscess, or significant mesenteric inflammatory changes. I would recommend medical management, consideration for immune modulation. Surgery will sign off, reconsult if clinically indicated. (2) History of resection of terminal ileum Is this a current diagnosis for this admission?: Yes (3) Hypertension Qualifiers: Hypertension type: essential hypertension Qualified Code(s): I10 - Essential (primary) hypertension Is this a current diagnosis for this admission?: Yes (4) Obesity Qualifiers: Obesity type: unspecified obesity type Obesity classification: adult class 2 (BMI 35 - 39.9) Serious obesity comorbidity presence: with serious comorbidity Is this a current diagnosis for this admission?: Yes
[2019-11-03] MEDS: DEXTROSE 5%-LACTATED RINGERS 1,000 ML IV PRN (22:54)
[2019-11-04] MEDS: HEPARIN SOD (PORCINE) 5,000 UNIT/ML 1 ML VIAL SUBCUT SCH ×3 (05:19→21:00)
[2019-11-04] MEDS: MORPHINE SULFATE 10 MG/ML INJ IV PRN (05:21)
[2019-11-04] MEDS: PROMETHAZINE HCL INJ 25 MG/1 ML VIAL IV PRN (05:21)
[2019-11-04 06:40] LABS: HEMATOCRIT 34.8 % (36.0-47.0); HEMOGLOBIN 11.5 g/dL (12.0-15.5); MEAN CORPUSCULAR HEMOGLOBIN 26.3 pg (27.0-33.4); MEAN CORPUSCULAR VOLUME 80 fl (80-97); PLATELET COUNT 279 10^3/uL (150-450); RED BLOOD COUNT 4.38 10^6/uL (3.72-5.28); RED CELL DISTRIBUTION WIDTH 13.9 % (11.5-14.0); WHITE BLOOD COUNT 6.8 10^3/uL (4.0-10.5)
[2019-11-04] MEDS: DEXTROSE 5%-LACTATED RINGERS 1,000 ML IV PRN ×3 (06:41→20:55)
[2019-11-04 06:52] LABS: ALBUMIN 3.3 g/dL (3.5-5.0); ALKALINE PHOSPHATASE 65 U/L (38-126); AMYLASE 48 U/L (30-110); ANION GAP 6 (5-19); ASPARTATE AMINO TRANSFERASE 15 U/L (14-36); BILIRUBIN,TOTAL 0.2 mg/dL (0.2-1.3); BLOOD UREA NITROGEN 9 mg/dL (7-20); CALCIUM 8.7 mg/dL (8.4-10.2); CARBON DIOXIDE 23 mmol/L (22-30); CHLORIDE 107 mmol/L (98-107); GLUCOSE 114 mg/dL (75-110); TOTAL PROTEIN 6.3 g/dL (6.3-8.2)
[2019-11-04] MEDS: FAMOTIDINE INJ/PF 20 MG/2 ML SDV IV SCH ×2 (09:20→20:59)
[2019-11-04] MEDS: PREDNISONE 20 MG TABLET PO SCH (09:20)
[2019-11-04] MEDS ORDERED: MORPHINE SULFATE 10 MG/ML INJ IV PRN (13:54)
--- NOTE | 2019-11-04 14:03 | PDOC PROGRESS REPORT ---
Subjective Progress Note for:: 11/04/19 Subjective:: Patient states that she was able to go longer without requiring IV morphine yesterday after receiving the prednisone. Is not having any diarrhea but still having some abdominal pain mostly in her right lower quadrant. Mild nausea but denies any vomiting. Tolerating diet. Reason For Visit: ACUTE PANCREATITIS Physical Exam Vital Signs: Temp Pulse Resp BP Pulse Ox 98.2 F 75 16 135/98 H 98 11/04/19 10:52 11/04/19 12:17 11/04/19 12:17 11/04/19 10:52 11/04/19 12:17 Intake & Output 11/03/19 11/04/19 11/05/19 06:59 06:59 06:59 Intake Total 4000 2040 566 Balance 4000 2040 566 Weight 112.4 kg 115 kg General appearance: PRESENT: no acute distress, cooperative Neck exam: ABSENT: JVD Respiratory exam: PRESENT: clear to auscultation gwendolyn, unlabored GI/Abdominal exam: PRESENT: soft, tenderness. ABSENT: distended, firm, guarding, rebound, rigid Neurological exam: PRESENT: alert, awake Results Laboratory Results: 11/04/19 05:22 11/04/19 05:22 11/04/19 11/04/19 05:22 05:22 WBC 6.8 RBC 4.38 Hgb 11.5 L Hct 34.8 L MCV 80 MCH 26.3 L MCHC 33.0 RDW 13.9 Plt Count 279 Sodium 135.6 L Potassium 4.0 Chloride 107 Carbon Dioxide 23 Anion Gap 6 BUN 9 Creatinine 0.78 Est GFR ( Amer) > 60 Glucose 114 H Calcium 8.7 Magnesium 1.8 Total Bilirubin 0.2 AST 15 Alkaline Phosphatase 65 Total Protein 6.3 Albumin 3.3 L Amylase 48 Lipase 70.5 11/02/19 11/02/19 11:41 15:08 Creatine Kinase Cancelled 137 H Impressions: Acute Abdomen Series 11/02/19 11:17 IMPRESSION: Nonspecific, nonobstructed bowel gas pattern. Chain sutures are seen in the right lower quadrant. Abdomen Ultrasound 11/02/19 16:03 IMPRESSION: Hepatomegaly. Hepatic steatosis. Distended gallbladder with no stones and no evidence of cholecystitis. Abdomen/Pelvis CT 11/02/19 20:36 IMPRESSION: 1. Postoperative findings in the right lower quadrant (near the ileocecal junction) indicative of prior bowel resection and anastomosis. The wall of the bowel proximal to the anastomotic staple line is thickened and there is mild associated engorgement of the vasa recta. Clinical correlation for an infectious, inflammatory or ischemic enteritis is recommended . 2. Dermoid cyst in the right adnexum. 3. Physiologic free fluid in the cul de sac. Assessment and Plan - Diagnosis (1) Crohns disease Qualifiers: Gastrointestinal tract location: unspecified location Digestive disease complication type: unspecified complication Qualified Code(s): K50.919 - Crohn's disease, unspecified, with unspecified complications Is this a current diagnosis for this admission?: Yes Plan: History of Crohn's disease status post bowel resection. Currently, not on any immunomodulators as outpatient. Abdominal pain is mostly right lower quadrant. Abdominal CT scan without contra st shows bowel wall thickening and some mild signs of inflammation around patient's anastomosis site from her prior bowel resection. It is quite likely that patient's abdominal pain may be secondary to a Crohn's flare more so than acute pancreatitis especially given that patient was having multiple bouts of diarrhea up to 15 episodes a day in the past few days to seems to be resolving. C-reactive protein is high but ESR is normal. continue prednisone 30 mg daily. Outpatient f/u. (2) Acute pancreatitis Qualifiers: Pancreatitis type: unspecified pancreatitis type Acute pancreatitis complication: no infection or necrosis Qualified Code(s): K85.90 - Acute pancreatitis without necrosis or infection, unspecified Is this a current diagnosis for this admission?: Yes Plan: Admitted for treatment of acute pancreatitis with lipase > 8600. Abdominal ultrasound shows no common bile duct dilation or stones but reveals some steatosis. Abdominal CT however shows normal pancreas. Reduce IV fluid rate and de-escalate IV morphine intervals. Diet has been advanced to bland low residue diet. Tolerating diet. (3) Dermoid cyst of right ovary Is this a current diagnosis for this admission?: Yes Plan: 1.9x2.3cm dermoid cyst in the right adnexum noted incidentally on CT. [employer] recommending outpatient follow-up in the clinic for evaluation to see if surgical removal is warranted. (4) Obesity Qualifiers: Obesity type: unspecified obesity type Obesity classification: adult class 2 (BMI 35 - 39.9) Serious obesity comorbidity presence: with serious comorbidity Is this a current diagnosis for this admission?: Yes (5) Elevated blood pressure reading Is this a current diagnosis for this admission?: Yes Plan: May be secondary to pain. Will monitor. - Time Time Spent with patient: Less than 15 minutes
[2019-11-05] MEDS: DEXTROSE 5%-LACTATED RINGERS 1,000 ML IV PRN (05:44)
[2019-11-05] MEDS: HEPARIN SOD (PORCINE) 5,000 UNIT/ML 1 ML VIAL SUBCUT SCH (05:46)
[2019-11-05 06:19] LABS: HEMATOCRIT 30.9 % (36.0-47.0); HEMOGLOBIN 10.2 g/dL (12.0-15.5); MEAN CORPUSCULAR HEMOGLOBIN 26.2 pg (27.0-33.4); MEAN CORPUSCULAR HGB CONC 32.9 g/dL (32.0-36.0); MEAN CORPUSCULAR VOLUME 80 fl (80-97); PLATELET COUNT 271 10^3/uL (150-450); RED BLOOD COUNT 3.87 10^6/uL (3.72-5.28); WHITE BLOOD COUNT 5.5 10^3/uL (4.0-10.5)
[2019-11-05] MEDS: PREDNISONE 20 MG TABLET PO SCH (09:16)
[2019-11-05] MEDS: FAMOTIDINE INJ/PF 20 MG/2 ML SDV IV SCH (09:17)
--- NOTE | 2019-11-05 09:50 | PDOC DISCHARGE SUMMARY ---
Impression - Admit/DC Date/PCP Admission Date/Primary Care Provider: 11/02/19 20:01 Discharge Date: 11/05/19 - Discharge Diagnosis (1) Exacerbation of Crohn's disease Is this a current diagnosis for this admission?: Yes (2) Elevated lipase Is this a current diagnosis for this admission?: Yes (3) Abdominal pain Is this a current diagnosis for this admission?: Yes (4) Dermoid cyst of right ovary Is this a current diagnosis for this admission?: Yes (5) Obesity Is this a current diagnosis for this admission?: Yes (6) Elevated blood pressure reading Is this a current diagnosis for this admission?: Yes - Additional Information Resuscitation Status: Full Code Discharge Diet: Other (Comments) - bland/low residue diet Referrals: TAE AYALA MD [ACTIVE STAFF] - Prescriptions: Prednisone [Deltasone 20 mg Tablet] 30 mg PO DAILY 7 Days tablet Ondansetron [Zofran Odt 4 mg Tablet] 1 - 2 tab PO Q4HP PRN #10 tab.rapdis PRN Reason: For Nausea/Vomiting Home Medications: Ondansetron [Zofran Odt 4 mg Tablet] 1 - 2 tab PO Q4HP PRN #10 tab.rapdis 11/05/19 Prednisone [Deltasone 20 mg Tablet] 30 mg PO DAILY 7 Days tablet 11/05/19 History of Present Illiness History of Present Illness: According to admitting provider: MACKENZIE MCGEE is a 39 year old female who presented the emergency room with a one-day history of abdominal pain. She admits the sudden onset of generalized, nonradiating, intermittent, severe abdominal colic/cramping pain beginning yesterday accompanied by nausea with numerous episodes of vomiting and associated with decreased oral intake and numerous watery diarrhea stools. She denies other associated or accompanying signs and symptoms. She admits prior similar episodes associated with Crohn's disease. She has not identified any aggravating or ameliorating factors for her abdominal pain. In the emergency room she was found to have an elevated lipase at 8667 with an abdominal ultrasound that showed a dilated gallbladder without stones or wall thickening. She was subsequently admitted to the hospital for further evaluation and treatment. Hospital Course Hospital Course: Patient presented with nausea, vomiting abdominal pain and diarrhea. Blood work was remarkable for lipase elevation of 8667. Patient was admitted initially for treatment of acute pancreatitis with IV fluids and IV pain medications. Abdominal ultrasound showed hepatomegaly with hepatic steatosis but no evidence of cholecystitis and a normal common bile duct. Abdominal CT was performed which showed normal pancreas but did show inflammation of of bowel at the anastomosis site from her prior bowel resection close to the ileocecal junction. Given the patient's constellation of symptoms with right lower quadrant abdominal pain, diarrhea, lack of significant pancreatitis triggers, as well as imaging findings, I am not convinced the patient actually had acute pancreatitis and actually think patient's presentation is more consistent with an acute flare of her Crohn's disease [which can also cause significant lipase elevation]. As such, I started patient on prednisone with improvement of her symptoms. She is tolerating diet. I have discharge patient on prednisone for the next several days and an appointment will be made by us with Dr. Ayala tomorrow. Patient was also tested for COVID-19 during this admission which was negative. Abdominal CT also incidentally picked up 1.9 x 2.3 cm dermoid cyst in her right adnexa and [employer] was consulted who recommends outpatient follow-up to determine if surgical removal is warranted. Physical Exam Vital Signs: Temp Pulse Resp BP Pulse Ox 98.3 F 71 16 151/92 H 100 11/05/19 07:35 11/05/19 07:35 11/05/19 07:35 11/05/19 07:35 11/05/19 07:35 Intake & Output 11/04/19 11/05/19 11/06/19 06:59 06:59 06:59 Intake Total 2040 3926 Balance 2040 3926 Weight 115 kg 93 kg General appearance: PRESENT: no acute distress, cooperative Neck exam: ABSENT: JVD Respiratory exam: PRESENT: unlabored. ABSENT: tachypnea Musculoskeletal exam: PRESENT: ambulatory Neurological exam: PRESENT: alert, awake Results Laboratory Results: WBC 5.5 10^3/uL (4.0-10.5) 11/05/19 05:46 RBC 3.87 10^6/uL (3.72-5.28) 11/05/19 05:46 Hgb 10.2 g/dL (12.0-15.5) L 11/05/19 05:46 Hct 30.9 % (36.0-47.0) L 11/05/19 05:46 MCV 80 fl (80-97) 11/05/19 05:46 MCH 26.2 pg (27.0-33.4) L 11/05/19 05:46 MCHC 32.9 g/dL (32.0-36.0) 11/05/19 05:46 RDW 14.0 % (11.5-14.0) 11/05/19 05:46 Plt Count 271 10^3/uL (150-450) 11/05/19 05:46 Lymph % (Auto) 42.7 % (13-45) 11/02/19 15:08 Barren % (Auto) 3.8 % (3-13) 11/02/19 15:08 Eos % (Auto) 1.5 % (0-6) 11/02/19 15:08 Baso % (Auto) 1.1 % (0-2) 11/02/19 15:08 Absolute Neuts (auto) 3.1 10^3/uL (1.7-8.2) 11/02/19 15:08 Absolute Lymphs (auto) 2.6 10^3/uL (0.5-4.7) 11/02/19 15:08 Absolute Monos (auto) 0.2 10^3/uL (0.1-1.4) 11/02/19 15:08 Absolute Eos (auto) 0.1 10^3/uL (0.0-0.6) 11/02/19 15:08 Absolute Basos (auto) 0.1 10^3/uL (0.0-0.2) 11/02/19 15:08 Seg Neutrophils % 50.9 % (42-78) 11/02/19 15:08 ESR 14 mm/hr (0-20) 11/02/19 15:08 Sodium 135.6 mmol/L (137-145) L 11/04/19 05:22 Potassium 4.0 mmol/L (3.6-5.0) 11/04/19 05:22 Chloride 107 mmol/L (98-107) 11/04/19 05:22 Carbon Dioxide 23 mmol/L (22-30) 11/04/19 05:22 Anion Gap 6 (5-19) 11/04/19 05:22 BUN 9 mg/dL (7-20) 11/04/19 05:22 Creatinine 0.78 mg/dL (0.52-1.25) 11/04/19 05:22 Est GFR ( Amer) > 60 (>60) 11/04/19 05:22 Est GFR (Non-Af Amer) Cancelled 11/02/19 11:41 Est GFR (MDRD) Non-Af > 60 (>60) 11/04/19 05:22 Glucose 114 mg/dL (75-110) H 11/04/19 05:22 POC Glucose 93 mg/dL (70-110) 11/05/19 05:46 Calcium 8.7 mg/dL (8.4-10.2) 11/04/19 05:22 Magnesium 1.6 mg/dL (1.6-2.3) 11/05/19 05:46 Total Bilirubin 0.2 mg/dL (0.2-1.3) 11/04/19 05:22 Direct Bilirubin 0.0 mg/dL (0.0-0.4) 11/04/19 05:22 Neonat Total Bilirubin Not Reportable 11/04/19 05:22 Neonat Direct Bilirubin Not Reportable 11/04/19 05:22 Neonat Indirect Bili Not Reportable 11/04/19 05:22 AST 15 U/L (14-36) 11/04/19 05:22 ALT 10 U/L (<35) 11/04/19 05:22 Alkaline Phosphatase 65 U/L (38-126) 11/04/19 05:22 Creatine Kinase 137 U/L (30-135) H 11/02/19 15:08 C-Reactive Protein 21.7 mg/L (<10.0) H 11/02/19 15:08 Total Protein 6.3 g/dL (6.3-8.2) 11/04/19 05:22 Albumin 3.3 g/dL (3.5-5.0) L 11/04/19 05:22 Triglycerides 123 mg/dL (<150) 11/03/19 06:10 Cholesterol 96.98 mg/dL (0-200) 11/03/19 06:10 LDL Cholesterol Direct 47 mg/dL (<100) 11/03/19 06:10 VLDL Cholesterol 25.0 mg/dL (10-31) 11/03/19 06:10 HDL Cholesterol 35 mg/dL (>40) L 11/03/19 06:10 Amylase 48 U/L (30-110) 11/04/19 05:22 Lipase 70.5 U/L (23-300) 11/04/19 05:22 EGFR Cancelled 11/02/19 11:41 TSH 2.77 uIU/mL (0.47-4.68) 11/03/19 06:10 Free T3 pg/mL 4.17 pg/mL (2.77-5.27) 11/03/19 06:10 Serum HCG, Qual NEGATIVE (NEGATIVE) 11/02/19 15:08 Urine Color YELLOW 11/02/19 16:30 Urine Appearance SLIGHTLY-CLOUDY 11/02/19 16:30 Urine pH 5.0 (5.0-9.0) 11/02/19 16:30 Ur Specific [place] 1.021 11/02/19 16:30 Urine Protein NEGATIVE mg/dL (NEGATIVE) 11/02/19 16:30 Urine Glucose (UA) NEGATIVE mg/dL (NEGATIVE) 11/02/19 16:30 Urine Ketones NEGATIVE mg/dL (NEGATIVE) 11/02/19 16:30 Urine Blood LARGE (NEGATIVE) H 11/02/19 16:30 Urine Nitrite NEGATIVE (NEGATIVE) 11/02/19 16:30 Urine Bilirubin NEGATIVE (NEGATIVE) 11/02/19 16:30 Urine Urobilinogen NEGATIVE mg/dL (<2.0) 11/02/19 16:30 Ur Leukocyte Esterase NEGATIVE (NEGATIVE) 11/02/19 16:30 Urine WBC (Auto) 6 /HPF 11/02/19 16:30 Urine RBC (Auto) 42 /HPF 11/02/19 16:30 U Hyaline Cast (Auto) 1 /LPF 11/02/19 16:30 Squamous Epi Cells Auto 9 /HPF 11/02/19 16:30 Urine Mucus (Auto) FEW /LPF 11/02/19 16:30 Urine Ascorbic Acid NEGATIVE (NEGATIVE) 11/02/19 16:30 COVID-19 Source NASOPHARYNGEAL 11/02/19 11:20 COVID-19 (KIEL) NOT DETECTED 11/02/19 11:20 SARS-CoV-2 (PCR) NEGATIVE (NEGATIVE) 11/03/19 15:10 Impressions: Acute Abdomen Series 11/02/19 11:17 IMPRESSION: Nonspecific, nonobstructed bowel gas pattern. Chain sutures are seen in the right lower quadrant. Abdomen Ultrasound 11/02/19 16:03 IMPRESSION: Hepatomegaly. Hepatic steatosis. Distended gallbladder with no stones and no evidence of cholecystitis. Abdomen/Pelvis CT 11/02/19 20:36 IMPRESSION: 1. Postoperative findings in the right lower quadrant (near the ileocecal junction) indicative of prior bowel resection and anastomosis. The wall of the bowel proximal to the anastomotic staple line is thickened and there is mild associated engorgement of the vasa recta. Clinical correlation for an infectious, inflammatory or ischemic enteritis is recommended . 2. Dermoid cyst in the right adnexum. 3. Physiologic free fluid in the cul de sac. Plan Time Spent: Less than 30 Minutes Stroke Is this a Stroke Patient?: No Acute Heart Failure - Is this a Heart Failure Patient?: No
[2019-11-05 10:09] VITALS: BP 134/98
== END 2019-11-05 11:18 | disposition home or self-care (01) | DRG 387 ==
LOC: ER 10:09 → EH 20:01 → 4S 22:16
PROVIDERS: ADMIT Emergency Medicine; ATTEND Internal Medicine
DX: K50.10 Crohn's disease of large intestine without complications (principal); D27.0 Benign neoplasm of right ovary; K76.0 Fatty (change of) liver, not elsewhere classified; I10 Essential (primary) hypertension; E66.9 Obesity, unspecified; K21.9 Gastro-esophageal reflux disease without esophagitis; D64.9 Anemia, unspecified; F17.210 Nicotine dependence, cigarettes, uncomplicated; Z03.818 Encounter for observation for suspected exposure to other biological agents ruled out; Z68.32 Body mass index [BMI] 32.0-32.9, adult; Z90.49 Acquired absence of other specified parts of digestive tract; Z79.899 Other long term (current) drug therapy; Z91.040 Latex allergy status
CPT/HCPCS: 36415; 74022; 74176; 76705; 80048; 80053; 80061; 80076; 81001; 82150; 82550; 82962; 83690; 83735; 84443; 84478; 84481; 84703; 85025; 85027; 85652; 86140; 87635; 96361; 96374; 96375; 96376; 99285; C9803; J1644; J2270; J2405; J2550; J2765; J3490; J7030; J7121; J7512; S0028

== ENCOUNTER 2020-03-29 08:09 | Day surgery (SDC) | payer BC ==
[~2020-03-29 08:09] MED LIST: PROPOFOL INJ 200 MG/20 ML VIAL IV ONE
[2020-03-29] MEDS ORDERED: PROPOFOL INJ 200 MG/20 ML VIAL IV ONE (10:20)
--- NOTE | 2020-03-29 10:42 | Operative Report ---
Operative Report DATE OF SURGERY: 03/29/20 Operative Report: The risk, benefits and alternatives of the procedure including the risk of bleeding, perforation requiring surgery have been explained to the patient in detail and informed consent has been obtained. The patient is placed in the left, lateral decubital position. Timeout was called. Propofol medication is administered. Rectal examination is done which did not reveal any masses, tears or fissures. An Olympus videoscope was introduced into the patient's rectum. Scope was then carefully advanced all the way to what appears to be the cecum. There is irritation and inflammation along with ulceration that proceeds into the distal terminal ileum likely consistent with Crohn's disease. The scope was then sequentially pulled back via the various segments of the colon including the ascending colon, hepatic flexure, transverse colon, splenic flexure, descending colon finding to the rectosigmoid portions of the colon. Retroflexion maneuver is performed. PREOPERATIVE DIAGNOSIS: Follow-up Crohn's disease POSTOPERATIVE DIAGNOSIS: Crohn's disease status post biopsy with mild stricturing to the entrance of the terminal ileum OPERATION: Colonoscopy with biopsy SURGEON: TAE AYALA ANESTHESIA: LMAC TISSUE REMOVED OR ALTERED: As noted above. COMPLICATIONS: None. ESTIMATED BLOOD LOSS: None. INTRAOPERATIVE FINDINGS: As noted above. PROCEDURE: Patient tolerated the procedure well. No immediate postprocedure complications are noted. Patient is discharged in good condition. Discharge date 03/29/2020. Discharge diet: Regular. Discharge activity: Regular. 2 to 3-week follow-up to discuss findings. Patient is instructed call the office or proceed to the emergency room should there be any further problems or questions. Wait on the pathology.
[2020-03-29 10:56] VITALS: BP 129/80
== END 2020-03-29 10:41 | disposition home or self-care (01) ==
LOC: END 08:09
PROVIDERS: ATTEND Internal Medicine Gastroenterology
DX: K50.012 Crohn's disease of small intestine with intestinal obstruction (principal); K37 Unspecified appendicitis; Z90.49 Acquired absence of other specified parts of digestive tract
CPT/HCPCS: 45380; 88305 ×2; 00811; J2704; 811